=== PATIENT | male | born 1940 | race Caucasian/White ===

== ENCOUNTER 2019-04-19 17:36 | Inpatient (IN) | payer OTHER ==
[~2019-04-19] VITALS: Ht 172.7 cm; Wt 116.6 kg
[2019-04-19] MEDS ORDERED: HYDROcodone-ACET 5/325MG TAB PO ONE (18:45)
[2019-04-19] MEDS ORDERED: ONDANSETRON ODT 4 MG TAB PO ONE (18:45)
[2019-04-19 21:53] LABS: Basophils # (auto) 0 uL; Basophils % (auto) 0.5 % (0.0-2.0); Eosinophils # (auto) 0 uL; Eosinophils % (auto) 0.5 % (0.0-7.0); Hematocrit 42.4 % (41.0-53.0); Hemoglobin 14.1 g/dL (13.5-17.5); Lymphocytes # (auto) 1.3 uL; Lymphocytes % (auto) 12.6 % (10.0-50.0); Mean Corpuscular Hemoglobin 30.7 pg (28.0-32.0); Mean Corpuscular Hgb Conc. 33.3 g/dL (32.0-36.0); Mean Corpuscular Volume 91.9 fL (80.0-100.0); Monocytes # (auto) 0.7 uL; Monocytes % (auto) 6.7 % (0.0-12.0); Neutrophils # (auto) 8.1 uL; Neutrophils % (auto) 79.7 % (37.0-80.0); Platelet Count (auto) 218 10^3/uL (140-450); Red Blood Cells 4.61 10^6/uL (4.5-5.90); Red Cell Distribution Width 14.1 % (11.8-14.3); White Blood Cell 10.2 10^3/uL (4.4-10.8)
[2019-04-19] MEDS: FAMOTIDINE 20 MG TAB PO SCH (22:00)
[2019-04-19] MEDS: PRAVASTATIN SODIUM 20 MG TAB PO SCH (22:00)
[2019-04-19] MEDS ORDERED: ACETAMINOPHEN 325 MG TAB PO PRN (22:00)
[2019-04-19 22:11] LABS: Albumin 3.6 g/dL (3.4-5.0); Calcium 8.8 mg/dL (8.5-10.1); Potassium 4.1 mmol/L (3.5-5.1)
[2019-04-19 22:15] LABS: BUN/Creatinine Ratio 23.5; Bilirubin, Total 0.6 mg/dL (0.2-1.0); Total Protein 7.5 g/dL (6.4-8.2)
--- NOTE | 2019-04-19 23:30 | NUR ---
MS admit from ER [place] admitted to tele/MS. Patient oriented to QUIANA HELTON, RN primary RN, unit Med/Surg, room 204 and unit policies regarding patient care and visiting hours. Patient weighed by bedscale and encouraged to call if they need something. All questions and concerns addressed, patient verbalized understanding. Patient awake, alert and oriented x 4, at beside, bed is in low position, call light and bedside table is within reach, side rails up x 2. Patient instructed to call nursing staff for assistance.
[2019-04-19 23:45] VITALS: BP 144/80
[2019-04-19] MEDS: HYDROcodone-ACET 5/325MG TAB PO PRN (23:59)
[2019-04-20] MEDS: TEMAZEPAM 15 MG CAP PO PRN ×2 (00:36→21:02)
[2019-04-20] MEDS ORDERED: CHOL20007 OR (00:42)
[2019-04-20] MEDS ORDERED: METO-169 PO (00:42)
[2019-04-20] MEDS ORDERED: ASPI81CH43 PO (00:42)
[2019-04-20] MEDS ORDERED: ACET1CAP14 PO (00:42)
[2019-04-20] MEDS ORDERED: ETOD400T3 PO (00:42)
[2019-04-20] MEDS ORDERED: MULT-931 PO (00:42)
[2019-04-20] MEDS ORDERED: PRAV20TA3 PO (00:42)
[2019-04-20] MEDS ORDERED: MAGN400C3 PO (00:42)
[2019-04-20] MEDS ORDERED: OMEP20TA PO (00:42)
[2019-04-20] MEDS ORDERED: AMLO5TAB15 PO (00:42)
[2019-04-20] MEDS ORDERED: DOXYPOW PO (00:42)
[2019-04-20] MEDS ORDERED: ALFU10TA12 PO (00:42)
[2019-04-20 04:40] VITALS: BP 139/72
--- NOTE | 2019-04-20 07:30 | NUR ---
SHIFT CLOSING NOTE. ENDORSED CARE OF PATIENT TO DAY SHIFT, ABHIJEET DURÁN.
--- NOTE | 2019-04-20 07:48 | NUR ---
PATIENT ROUNDS PATIENT LYING IN BED, NO DISTRESS NOTED. BED IN LOWEST POSITION, SIDE RAILS UP X2, CALL LIGHT WITHIN REACH. WILL CONTINUE TO MONITOR.
[2019-04-20] MEDS: HYDROcodone-ACET 5/325MG TAB PO PRN ×3 (07:56→21:03)
[2019-04-20 09:00] VITALS: BP 145/73
[2019-04-20 09:55] LABS: Urine Bacteria NONE SEEN /hpf (None Seen); Urine Blood Negative /uL (Negative); Urine Hyaline Cast FEW /lpf (0 - 2); Urine Mucus FEW (None Seen); Urine Specific Gravity 1.025 (1.001-1.035); Urine WBC 4 /hpf (0 - 3)
[2019-04-20] MEDS ORDERED: ENOXAPARIN SOD 40 MG/0.4 ML SYRINGE SC SCH (10:00)
[2019-04-20] MEDS: amLODIPine BESYLATE 5 MG TAB PO SCH (10:20)
[2019-04-20] MEDS: FAMOTIDINE 20 MG TAB PO SCH ×2 (10:20→21:03)
[2019-04-20 12:41] VITALS: BP 137/66
[2019-04-20] MEDS: MORPHINE SULFATE 4 MG/ML SYR/VIAL IV PRN ×2 (12:49→21:59)
[2019-04-20 14:16] LABS: INR 0.99 (0.9-1.15)
--- NOTE | 2019-04-20 14:55 | NUR ---
MD UPDATE PER DR DOMINGUEZ-DR HUYNH IS TO DO SURGERY 04/21/19, NEW ORDER FOR CARDIO CONSULT FOR CARDIAC CLEARANCE, ECHO, LAB WORK, CXR, NPO AT MIDNIGHT TONIGHT
--- NOTE | 2019-04-20 15:08 | NUR ---
DR NUNN AT BEDSIDE FOR CARDIO CONSULT MOBILE SECURITY SPECIALIST HAS BEEN PAGED TWICE FOR ECHO ORDER-DR NUNN STATED HE WANTS THE TECH TO CALL HIM AFTER ECHO IS COMPLETE.
[2019-04-20 16:20] VITALS: BP 137/83
--- NOTE | 2019-04-20 16:50 | NUR ---
PATIENT OFF UNIT FOR CT SCAN
--- NOTE | 2019-04-20 17:18 | NUR ---
PER DIEM PHYSICAL THERAPIST ASSISTANT AT BEDSIDE-HE IS AWARE TO CALL DR NUNN ONCE ECHO IS COMPLETE.
[2019-04-20] MEDS ORDERED: OPTISON 3ml Vial for INJ IV ONE (17:32)
--- NOTE | 2019-04-20 17:55 | NUR ---
ECHO COMPLETE, OPTISON COMPLETE, NO REACTION NOTED, PATIENT TOLERATED WELL.
--- NOTE | 2019-04-20 18:13 | NUR ---
ORTHO DR HUYNH AT BEDSIDE, PATIENT AND AT BEDSIDE AND UPDATED ON POC BY MD. PLAN FOR SURGERY TUESDAY SCHEDULED AT 08:00AM. IF CARDIO CLEARANCE IS DONE BY DR NUNN IN AM THEN DR HUYNH WILL ATTEMPT TO HAVE SURGERY DONE TOMORROW.
--- NOTE | 2019-04-20 19:00 | NUR ---
OPENING NOTE Received report from day shift RN. Patient is A&O X's 4 with no s/s of distress noted. Patient c/o 9/10 left leg pain. Educated patient on pain medication and pain management. Will give pain medication as ordered. Patient has a splint with rich bandage around it to left leg and foot. Both lower extremities demonstrate adequate perfusion and circulation. Patient reports no numbness or tingling. Educated patient on POC and to use call light when in need of assistance. Patient verbalized understanding. Bed is in lowest/locked position with side rails up X's 2 and call light is within reach of patient. Will continue care.
[2019-04-20] MEDS: PRAVASTATIN SODIUM 20 MG TAB PO SCH (21:02)
--- NOTE | 2019-04-20 21:13 | NUR ---
RT NOTE PT REQUESTED NOT TO WEAR THE CPAP FOR THE REST OF THEW NIGHT HE DID NOT FEEL COMFORTABLE WITH THE CPAP. MACHINE LEFT AT BEDSIDE IF PT CHANGES MIND.
[2019-04-20 21:30] VITALS: BP 145/82
[2019-04-21 02:58] VITALS: BP 145/82
[2019-04-21 04:59] LABS: Basophils # (auto) 0.1 uL; Basophils % (auto) 0.9 % (0.0-2.0); Eosinophils # (auto) 0.3 uL; Eosinophils % (auto) 3.9 % (0.0-7.0); Hematocrit 43.1 % (41.0-53.0); Hemoglobin 14.2 g/dL (13.5-17.5); Lymphocytes # (auto) 1.6 uL; Lymphocytes % (auto) 22.1 % (10.0-50.0); Mean Corpuscular Hemoglobin 30.3 pg (28.0-32.0); Mean Corpuscular Volume 91.6 fL (80.0-100.0); Monocytes # (auto) 0.8 uL; Monocytes % (auto) 11.3 % (0.0-12.0); Neutrophils # (auto) 4.4 uL; Neutrophils % (auto) 61.8 % (37.0-80.0); Nucleated Red Blood Cells % 0.1 %; Platelet Count (auto) 194 10^3/uL (140-450); Red Cell Distribution Width 14.2 % (11.8-14.3); White Blood Cell 7.1 10^3/uL (4.4-10.8)
[2019-04-21 05:00] VITALS: BP 153/97
[2019-04-21 05:14] LABS: INR 1.01 (0.9-1.15)
[2019-04-21 05:17] LABS: BUN/Creatinine Ratio 12.5; Calcium 8.6 mg/dL (8.5-10.1); Potassium 3.6 mmol/L (3.5-5.1)
[2019-04-21] MEDS: MORPHINE SULFATE 4 MG/ML SYR/VIAL IV PRN ×4 (06:03→22:43)
--- NOTE | 2019-04-21 07:30 | NUR ---
Opening Shift Note Assumed care of patient, awake, alert, and oriented x4. No S/S of distress/SOB, but patient is reporting left leg pain of 6/10. IV is in left hand 20 gauge is asymptomatic, intact, patent, and saline locked. Bed is locked and in lowest position and call light is within reach. Instructed on POC and to call for assist PRN, and patient verbalized understanding. Will continue to monitor for changes Q1hr and PRN.
--- NOTE | 2019-04-21 08:50 | NUR ---
Dr. Stanley MD, at bedside. New orders received.
[2019-04-21 09:00] VITALS: BP 151/97
--- NOTE | 2019-04-21 09:21 | NUR ---
Ordered breakfast tray for patient; reg diet put in, pt will be NPO tonight at midnight for procedure tomorrow.
--- NOTE | 2019-04-21 09:23 | NUR ---
Surgery Tuesday at 08:00 Dr. Stanley MD, instructed surgery will be tomorrow, Tuesday, at 0800.
[2019-04-21] MEDS: HYDROcodone-ACET 5/325MG TAB PO PRN (09:28)
--- NOTE | 2019-04-21 09:30 | NUR ---
Patient requesting Prune juice; left message with dietary to please send up to room 204.
--- NOTE | 2019-04-21 10:00 | NUR ---
Dr. Gil, Orthopedic Surgeon, at bedside.
[2019-04-21] MEDS: FAMOTIDINE 20 MG TAB PO SCH ×2 (10:19→22:41)
[2019-04-21] MEDS: amLODIPine BESYLATE 5 MG TAB PO SCH (10:20)
--- NOTE | 2019-04-21 11:30 | NUR ---
IV removal IV DC'd with clean sterile technique, catheter fully intact. Pressure dressing applied to site. Patient tolerated well.
--- NOTE | 2019-04-21 11:35 | NUR ---
IV insertion IV access obtained, via clean sterile technique by inserting 20 gauge catheter at right wrist after 1 attempt. IV secured properly. No trauma to site. Patient tolerated well.
[2019-04-21 13:00] VITALS: BP 152/81
--- NOTE | 2019-04-21 16:10 | NUR ---
Received report on patient. Patient is alert and oriented. No complaints at this time. at bedside. Call light in reach. Will continue to monitor.
[2019-04-21 18:03] VITALS: BP 149/74
--- NOTE | 2019-04-21 19:30 | NUR ---
Opening Shift Note Assumed care of patient, awake and alert. No S/S of distress/SOB and "was just medicated for pain," pt states. This RN instructed pt on POC and to call for assist PRN. Pt voiced understanding and has nurse call light by L side of his face. This RN will continue to monitor for changes Q1hr and PRN. Bed in low position and locked.
--- NOTE | 2019-04-21 19:57 | NUR ---
Respiratory note: PT RECIEVED ON RA IN NO DISTRESS AT THIS TIME. PT ALERT AND ORIENTATED. SPOKE WITH PT ABOUT GOING ON CPAP TONIGHT AND STATES HE IS NOT GOING TO GO ON TONIGHT. RN AT BEDSIDE TO VERIFY PT'S REQUESTS. SPO2 ON RA 94%, HR 64, RR 18. BS CLR/DIM. WILL CONTINUE TO MONITOR PT T/O SHIFT. Addendum: 04/21/19 at 2033 by RT SHIVA RT BRAYDEN FRAGOSO TO VERIFY REFUSAL OF CPAP.
--- NOTE | 2019-04-21 20:34 | NUR ---
Pt telling RT that the CPAP machines here at the hospital are too noisy and heavy on his face. He further stated that he "did not use CPAP last night and I am okay."
[2019-04-21 22:00] VITALS: BP 145/97
[2019-04-21] MEDS: PRAVASTATIN SODIUM 20 MG TAB PO SCH (22:41)
[2019-04-21] MEDS: TEMAZEPAM 15 MG CAP PO PRN (22:43)
[2019-04-22 05:09] VITALS: BP 136/70
[2019-04-22] MEDS: MORPHINE SULFATE 4 MG/ML SYR/VIAL IV PRN ×4 (06:05→22:23)
--- NOTE | 2019-04-22 06:30 | NUR ---
Pt has had saline lock in R hand. This RN started PIV on first attempt with 20g cath L dorsal lateral hand. Pt sybil. well. Saline locked. Secured with tape; dated and initialed.
--- NOTE | 2019-04-22 06:34 | NUR ---
HCG bed bath given to pt before PIV started. Pt sybil well; Morphine 2mg IVP given after activity for pain.
--- NOTE | 2019-04-22 08:00 | NUR ---
Opening Shift Note Assumed care of patient, resting with eyes closed, wakes easily to sound/touch. No S/S of distress/SOB or pain. Instructed on POC and to call for assist PRN, will continue to monitor for changes Q1hr and PRN.
--- NOTE | 2019-04-22 08:21 | NUR ---
0745 HEART RATE WAS IN THE 40'S AT 5 AM VITAL SIGNS, PATIENT CURRENTLY ASYMPTOMATIC. DR DOMINGUEZ CALLED, THIS PHYSICIAN ALLERGIST IMMUNOLOGIST CHECKED HEART RATE WHILE ON PHONE WITH MD, HEART RATE READS 38-[address] DOMINGUEZ TRANSFER PATIENT STATUS, PER DR DOMINGUEZ SURGERY IS CANCELLED. PATIENT AND UPDATED, MONITOR APPLIED, PATIENT CURRENT RHYTHM IS SINUS IN THE 80'S. REPORT GIVEN TO LEEANNA.
[2019-04-22 09:00] VITALS: BP 152/97
[2019-04-22] MEDS: FAMOTIDINE 20 MG TAB PO SCH ×2 (09:08→22:21)
[2019-04-22] MEDS: amLODIPine BESYLATE 5 MG TAB PO SCH (09:09)
[2019-04-22] MEDS ORDERED: BISACODYL 10 MG RECT SUPP PR PRN (09:30)
[2019-04-22] MEDS: POLYETHYLENE GLYCOL 17 GM PWDR PO PRN (10:49)
[2019-04-22 13:00] VITALS: BP 144/97
[2019-04-22] MEDS: DOCUSATE SOD 100 MG CAP PO PRN (15:48)
[2019-04-22 18:20] VITALS: BP 149/93
--- NOTE | 2019-04-22 19:26 | NUR ---
Opening Shift Note Assumed care of patient, awake and alert x 4. No S/S of distress/SOB. Bed is in lowest position and locked. Call light within reach. Board updated. Tele box number matches monitor and leads are in correct placement. Patient's left leg is secured with a splint wrapped in an ARTURO wrap. Distal pulses intact, skin warm, cap refill <3 seconds, sensation intact. Instructed on POC and to call for assist PRN, will continue to monitor for changes Q1hr and PRN.
[2019-04-22] MEDS: PRAVASTATIN SODIUM 20 MG TAB PO SCH (22:21)
[2019-04-22 22:26] VITALS: BP 146/86
[2019-04-22] MEDS: TEMAZEPAM 15 MG CAP PO PRN (22:29)
--- NOTE | 2019-04-23 00:02 | NUR ---
Patient is now NPO pending ORIF today. Patient aware that he may not eat or drink anything pending surgery. All foods and luids removed from reach.
[2019-04-23 05:18] VITALS: BP 137/66
[2019-04-23] MEDS: MORPHINE SULFATE 4 MG/ML SYR/VIAL IV PRN (05:40)
[2019-04-23 05:47] LABS: Basophils # (auto) 0 uL; Basophils % (auto) 0.5 % (0.0-2.0); Eosinophils # (auto) 0.2 uL; Eosinophils % (auto) 2.5 % (0.0-7.0); Hematocrit 45.5 % (41.0-53.0); Hemoglobin 15.3 g/dL (13.5-17.5); Lymphocytes # (auto) 1.9 uL; Lymphocytes % (auto) 20.3 % (10.0-50.0); Mean Corpuscular Hgb Conc. 33.6 g/dL (32.0-36.0); Mean Corpuscular Volume 92.1 fL (80.0-100.0); Monocytes # (auto) 1.2 uL; Monocytes % (auto) 12.9 % (0.0-12.0); Neutrophils # (auto) 5.9 uL; Neutrophils % (auto) 63.8 % (37.0-80.0); Platelet Count (auto) 228 10^3/uL (140-450); Red Blood Cells 4.94 10^6/uL (4.5-5.90); Red Cell Distribution Width 14.3 % (11.8-14.3); White Blood Cell 9.2 10^3/uL (4.4-10.8)
[2019-04-23 05:55] LABS: BUN/Creatinine Ratio 14.6
--- NOTE | 2019-04-23 06:08 | NUR ---
CHG bath performed. Patient's bed linen changed. Patient placed in new gown.
--- NOTE | 2019-04-23 07:30 | NUR ---
Assumed care of patient Patient resting in bed with even and unlabored respirations, no distress noted. Instructed patient on POC, fall precautions and to call for assistance as needed. Patient verbalized understanding. Fall precautions in place with bed in lowest locked position with call light within reach. Soft cast in place to the LLE. Patient's spouse at bedside. Will continue to monitor q1hr & PRN.
[2019-04-23] MEDS ORDERED: BUPIVACAINE 0.25% INJ 50ML VIAL ONE (07:41)
--- NOTE | 2019-04-23 07:46 | NUR ---
Called Dr. Moffett's office per the request of the anesthesiologist to clarify cardiac clearance for surgery. Spoke with MD's paging system.
--- NOTE | 2019-04-23 07:53 | NUR ---
Spoke with Dr. Moffett - patient is clear for surgery per MD.
--- NOTE | 2019-04-23 08:09 | NUR ---
Patient off unit to Pre-op via hospital bed. Respirations even and unlabored, no distress noted. Patient's spouse is at bedside.
[2019-04-23] MEDS ORDERED: ceFAZolin 1GM/50ML 50 ML IV ONE ×2 (08:26→09:09)
[2019-04-23] MEDS ORDERED: fentaNYL CITRATE 100 MCG/2 ML VL ONE ×2 (08:41→09:50)
[2019-04-23] MEDS ORDERED: ROCURONIUM 10MG/ML 10ML VIAL IV ONE (08:41)
[2019-04-23] MEDS ORDERED: PROPOFOL 10 MG/ML 20 ML IV ONE (08:42)
[2019-04-23] MEDS ORDERED: MORPHINE SULF(PF) 0.5MG/ML 10ML VIAL ONE (10:00)
[2019-04-23] MEDS: FAMOTIDINE 20 MG TAB PO SCH ×2 (10:00→22:28)
[2019-04-23] MEDS ORDERED: KETOROLAC TROMETH 30 MG/ML 1ML VIAL ONE (10:00)
[2019-04-23] MEDS ORDERED: ONDANSETRON HCL 4 MG/2 ML VIAL IV PRN (10:45)
[2019-04-23] MEDS ORDERED: hydrALAZINE HCL 20 MG/ML VL IV PRN (10:45)
[2019-04-23] MEDS ORDERED: ePHEDrine SULFATE 50 MG/ML AMP IV PRN (10:45)
[2019-04-23] MEDS ORDERED: HYDROmorphone HCL 2 MG/ML VL IV PRN ×2 (10:45)
[2019-04-23] MEDS: KETOROLAC TROMETH 30 MG/ML 1ML VIAL IV ONE ×2 (10:49→12:32)
[2019-04-23] MEDS ORDERED: HYDROmorphone HCL 2 MG/ML VL ONE (10:50)
[2019-04-23] MEDS: HYDROmorphone HCL 2 MG/ML VL IV PRN ×4 (10:52→11:29)
[2019-04-23] MEDS ORDERED: FAMOTIDINE 20 MG TAB PO ONE (11:15)
[2019-04-23] MEDS ORDERED: ENOXAPARIN SOD 40 MG/0.4 ML SYRINGE SC ONE (11:15)
--- NOTE | 2019-04-23 11:23 | NUR ---
Nutrition Assessment Notes Please see attached link for complete assessment Est. Needs ABW (91 kg): 7367-2128 kcal (20-23 kcal/kgBW), 91-100 gms pro (1.0-1.1 gms/kgABW). Will continue to monitor pertinent labs and reassess nutrient need prn Addendum: 04/23/19 at [address] Amended: Links added.
--- NOTE | 2019-04-23 11:50 | NUR ---
Patient returned to unit via hospital bed. Respirations even and unlabored, no distress noted. Patient is drowsy although arousable. Patient placed on supplemental oxygen. Patient reoriented to surroundings and situation. Fall precautions in place with bed in lowest locked position, x2 side rails up, bed alarm on for safety, call light within reach. Patient's spouse at bedside. LLE in a brace. Pedal pulse present. Will continue to monitor q1hr & PRN.
--- NOTE | 2019-04-23 12:15 | NUR ---
SCD placed per MD order
[2019-04-23] MEDS: KETOROLAC TROMETH 30 MG/ML 1ML VIAL ONE ×2 (12:32→13:07)
[2019-04-23 13:00] VITALS: BP 140/56
[2019-04-23] MEDS: amLODIPine BESYLATE 5 MG TAB PO SCH (13:06)
[2019-04-23] MEDS: LACTATED RINGER'S 1,000 ML IV SCH (13:09)
[2019-04-23] MEDS: ceFAZolin 1GM 2 GM in D5W 5% 100 ML IV SCH ×2 (14:02→22:27)
--- NOTE | 2019-04-23 14:25 | NUR ---
Patient resting in bed with even and unlabored respirations, no distress noted. Patient denies pain. Dressing to the LLE is clean, dry and intact. Pedal pulse present. Instructed patient to notify staff if assistance is needed. Patient verbalized understanding. Fall precautions in place with bed in lowest locked position with call light within reach. Patient's spouse at bedside. Will continue to monitor q1hr & PRN.
--- NOTE | 2019-04-23 14:51 | NUR ---
Copy of Durable Power of Banquet Steward for health care placed in hard chart. Original copy returned to the patient's spouse.
--- NOTE | 2019-04-23 15:00 | NUR ---
assessment Patient is a 79 year old male who is alert and oriented. Patients cognitive abilities are intact. Prior to admission patient lived home with family and functioned independently. Patient informed me he is able to care for his own ADLs. Patient tripped over a stool at home and fell fracturing his tibia. Patient will be non weight bearing per his Princess who is at bedside. Patients PCP is Dr Jay Jay Mace. Patient may benefit from SNF placement for transfer training on discharge. Patient and Princess agree to SNF. Per Princess she prefers [facility]. Patient has a fww and a cane for home use. Per patient he will return home to his prior living arrangements post discharge and family will transport him home. I informed patient he has a right to speak to a director social regarding all care. I informed patient he has a right to participate in any and all discharge planning. Patient has a POA and advanced directive. Patient verbalized understanding and agreed to discharge plan. Addendum: 04/23/19 at 1505 by Tuyet OSORIO Amended: Links added.
[2019-04-23 17:00] VITALS: BP 134/74
--- NOTE | 2019-04-23 18:23 | NUR ---
Paged on-call hospitalist Patient has c/o heartburn causing vomiting. Page to Daljit Jaramillo N.P.
[2019-04-23] MEDS: ONDANSETRON HCL 4 MG/2 ML VIAL IV PRN ×2 (18:24→23:48)
[2019-04-23] MEDS: DOCUSATE SOD 100 MG CAP PO PRN (18:30)
[2019-04-23] MEDS: POLYETHYLENE GLYCOL 17 GM PWDR PO PRN (18:30)
--- NOTE | 2019-04-23 18:34 | NUR ---
Orders received Updated Daljit Gonzalez., N.P., of patient's c/o heartburn with nausea. Daljit verbalized understanding. Orders received and read back to verify.
--- NOTE | 2019-04-23 18:55 | NUR ---
Closing note patient resting in bed with even and unlabored respirations, no distress noted. Fall precautions in place with call light within reach, bed alarm on for safety. Dressing to the LLE is clean, dry and intact. Removable brace in place per MD order. Pedal pulse present. Patient's spouse at bedside.
--- NOTE | 2019-04-23 19:23 | NUR ---
Care endorsed to ABHIJEET Gutierrez.
--- NOTE | 2019-04-23 19:24 | NUR ---
RE: Ordered Carafate One time dose of Carafate ordered by MD has not been verified. Endorsed to ABHIJEET Gutierrez.
[2019-04-23] MEDS ORDERED: SUCRALFATE 1 GM TAB PO ONE (19:30)
--- NOTE | 2019-04-23 19:30 | NUR ---
Opening Shift Note Assumed care of patient, awake and alert. No S/S of SOB or pain. present with pt. Pt c/o severe indigestion. Miralax previously mixed in water cont at pt's bedside untouched. Pt's c/o pt's resistance to drink it though he needs to have bm. Pt requesting med for indigestion. Assured med order received and we are awaiting release by pharm to be able to admin. Instructed on POC and to call for assist PRN; RN will continue to monitor for changes Q1hr and PRN. Bed locked in low position. HOB rails x2 elevated. Call light within reach of pt. HOB in Cheng's position.
[2019-04-23 22:00] VITALS: BP 152/94
[2019-04-23] MEDS: PRAVASTATIN SODIUM 20 MG TAB PO SCH (22:29)
--- NOTE | 2019-04-23 22:53 | NUR ---
Respiratory note: PT TAKEN OFF BIPAP DUE TO NAUSEA AND VOMITING. PLACED BACK ON 2 L/M NC: HR 99, RR 24, SPO2 95%. RN LIANE WEST. WILL CONTINUE TO MONITOR.
--- NOTE | 2019-04-23 23:55 | NUR ---
Paging on-call as pt's indigestion cont and now emesis of opaque bile green fluid. Zofran given for nausea as ordered.
--- NOTE | 2019-04-24 00:03 | NUR ---
Kimberlyn Snyder RN HYDRAULIC PUNCH PRESS OPERATOR, on-call, returned page. Pt has had 120ml bile drainage produced. Order received for Fleets enema x1. This RN returned to pt's room; pt c/o difficulty breathing. Resp rate increased to 24. R lung clear; L diminished in lower lobe. Pt denies having "choked or strangled after emesis. Paged on-call again.
--- NOTE | 2019-04-24 00:08 | NUR ---
RT here at bedside. Kimberlyn Snyder RN CAGE FIGHTER, on-call, again returned page; order received for albuterol txs.
[2019-04-24] MEDS: ALBUTEROL SULF 2.5 MG/0.5ML(0.5%) NEB SOLN NEB SCH ×4 (01:25→18:22)
--- NOTE | 2019-04-24 01:30 | NUR ---
Respiratory note: PT DID NOT TOLERATE MED NEB TX WELL. AFTER 5 MINUTES PT BEGAN TO FEEL NAUSEOUS AND ASKED FOR IT TO BE REMOVED. INFORMED RN LIANE. WILL CONTINUE TO MONITOR.
--- NOTE | 2019-04-24 01:32 | NUR ---
Paging on-call again, as this RN returned to pt's room to speak with him and pt had emesis across his face and into his hair, across his pillow and the linens. Brown, coffee ground appearance and smell to emesis.
--- NOTE | 2019-04-24 01:35 | NUR ---
Received call back from Kimberlyn Snyder RN CATERPILLAR TRACTOR OPERATOR; order received for stat H&H and GI consult.
[2019-04-24] MEDS: LACTATED RINGER'S 1,000 ML IV SCH ×2 (01:59→16:37)
[2019-04-24 02:14] LABS: Hematocrit 43.6 % (41.0-53.0); Hemoglobin 14.5 g/dL (13.5-17.5)
[2019-04-24] MEDS ORDERED: FLEET ENEMA(ADULT) 135 ML PR ONE (02:15)
--- NOTE | 2019-04-24 02:57 | NUR ---
Fleets enema given; pt turned to R side supported by FASHION DIRECTOR while RN gave enema. Only partial retained by pt; resting with pillow support to allow med to work. Large amount flatus being passed. Instructed to call for assist when done; Pt VU.
--- NOTE | 2019-04-24 03:11 | NUR ---
Pt urinated on chux as well as passing moderate amount of soft brown zana like stool. Chux changed and pt cleaned. Resuming rest.
[2019-04-24 03:15] VITALS: BP 152/94
[2019-04-24 05:00] VITALS: BP 147/79
[2019-04-24] MEDS: ceFAZolin 1GM 2 GM in D5W 5% 100 ML IV SCH (05:58)
[2019-04-24] MEDS: SUCRALFATE 1 GM TAB PO SCH ×4 (05:59→22:20)
[2019-04-24] MEDS: DOCUSATE SOD 100 MG CAP PO PRN (06:00)
[2019-04-24] MEDS ORDERED: METOCLOPRAMIDE HCL 5MG/ml INJ 2ml VIAL IV PRN (08:00)
--- NOTE | 2019-04-24 08:35 | NUR ---
D/C planning Per consult for SNF placement for transfer training. Contacted [facility] ph: ( [phone]) Fax:) faxed medical records. Per Alfredo from [facility] Pt has been acce[lisseth to room [address] Myers. Contacted [facility] Ph:) Fax:) faxed medical records. Pending on authorization. transportation will be arrange upon d/c day. Addendum: 04/24/19 at 0841 by LUCY STANTON Amended: Links added.
[2019-04-24 08:43] VITALS: BP 138/60
[2019-04-24] MEDS: ENOXAPARIN SOD 40 MG/0.4 ML SYRINGE SC SCH (08:52)
[2019-04-24] MEDS: FAMOTIDINE 20 MG TAB PO SCH (08:52)
[2019-04-24] MEDS: amLODIPine BESYLATE 5 MG TAB PO SCH (08:53)
--- NOTE | 2019-04-24 09:08 | NUR ---
D/C Planning Followed up call to [facility] spoke to Ladan. Per Ladan from [facility] authorization for SNF has been faxed to [facility]. Ladan from [facility] advised me Pt does not have transportation benefits. Advised Pt Princess at bedside, Pt has no transportation benefits and if she agrees to take Pt to facility or pay for transportation. Pt Princess was given rates for transportation and the transportation with the lowest rate was general transport. Pt Princess verbalize understanding.
[2019-04-24] MEDS ORDERED: ALUM & MAG HYDROX-SIMETH LIQ(MAALOX) 30 ML PO PRN (09:15)
[2019-04-24] MEDS ORDERED: OMEPRAZOLE 20MG/10ML ORAL SUSP PO SCH (10:00)
[2019-04-24] MEDS: HYDROcodone-ACET 10/325MG TAB PO PRN ×2 (10:01→22:20)
[2019-04-24 12:48] VITALS: BP 133/69
[2019-04-24] MEDS: PANTOPRAZOLE 40 MG TAB PO SCH (13:18)
[2019-04-24 16:17] VITALS: BP 131/89
--- NOTE | 2019-04-24 19:10 | NUR ---
OPENING SHIFT NOTE Assumed care of patient who is A&Ox4. Currently on 2L NC with no c/o SOB. Reports 01/24 throbbing pain in LLE. Pain management options discussed with patient. Patient is non-weight bearing on left leg as he is s/p ORIF on04/23/19. dressing and soft cast are in place; LLE elevated on pillows and SCD on RLE. POC discussed with patient and all questions answered. Bed is in low locked position with head elevated. jevon rails up x2. Call light is within reach and patient encouraged to call for assistance when needed. Will continue to monitor for changes PRN.
[2019-04-24 20:52] VITALS: BP 148/88
[2019-04-24] MEDS: TEMAZEPAM 15 MG CAP PO PRN (22:20)
[2019-04-24] MEDS: PRAVASTATIN SODIUM 20 MG TAB PO SCH (22:20)
--- NOTE | 2019-04-24 22:30 | NUR ---
Respiratory note:PT REFUSE CPAP AT THIS TIME, PT ALSO STATES HE WANTS TO WAIT UNTIL 0600 TO TAKE HIS NEXT MED NEB. PT SAT 94% ON 2LNC. NO DISTRESS NOTED.
--- NOTE | 2019-04-25 00:55 | NUR ---
IV dislodged. Catheter is fully intact. Pressure dressing applied. Patient tolerated well.
--- NOTE | 2019-04-25 01:50 | NUR ---
IV insertion IV access obtained, via clean sterile technique by inserting 22 gauge catheter at left forearm after 2 attempts. IV secured properly. No trauma to site. Patient tolerated well.
[2019-04-25] MEDS: LACTATED RINGER'S 1,000 ML IV SCH ×2 (02:23→12:37)
[2019-04-25 04:58] VITALS: BP 175/86
--- NOTE | 2019-04-25 05:00 | NUR ---
FLOOR WAXER reports BP of 175/86 with heart rate of 78. reassessed by this RN and BP is 151/71, heart rate 90.
[2019-04-25 05:11] LABS: Basophils # (auto) 0 uL; Basophils % (auto) 0.2 % (0.0-2.0); Eosinophils # (auto) 0.1 uL; Eosinophils % (auto) 0.7 % (0.0-7.0); Hematocrit 38.8 % (41.0-53.0); Hemoglobin 12.8 g/dL (13.5-17.5); Lymphocytes # (auto) 1.8 uL; Lymphocytes % (auto) 16.5 % (10.0-50.0); Mean Corpuscular Volume 93.9 fL (80.0-100.0); Monocytes # (auto) 1.4 uL; Monocytes % (auto) 12.6 % (0.0-12.0); Neutrophils # (auto) 7.6 uL; Platelet Count (auto) 193 10^3/uL (140-450); Red Blood Cells 4.14 10^6/uL (4.5-5.90); Red Cell Distribution Width 14.2 % (11.8-14.3); White Blood Cell 10.8 10^3/uL (4.4-10.8)
[2019-04-25 05:27] LABS: BUN/Creatinine Ratio 24.3; Calcium 8.5 mg/dL (8.5-10.1); Magnesium 2.5 mg/dL (1.6-2.6); Potassium 3.7 mmol/L (3.5-5.1)
[2019-04-25] MEDS: ALBUTEROL SULF 2.5 MG/0.5ML(0.5%) NEB SOLN NEB SCH ×3 (06:26→11:54)
[2019-04-25] MEDS: SUCRALFATE 1 GM TAB PO SCH (06:35)
--- NOTE | 2019-04-25 07:45 | NUR ---
Opening Patient in bed, asleep, bed in lowest position, call light within reach. No distress noted at this time. Today patient is to f/u with EGD procedure with DR Hollingsworth, will call to check about what time. Will f/u with morning assessment. Continuing to monitor this patient
[2019-04-25 08:00] VITALS: BP 175/75
--- NOTE | 2019-04-25 08:12 | NUR ---
nurse note laser technician reports an elevated bp, will administer medications as ordered. bp is currently 175/74 will reassess. Turned off IV fluid hydration, and sat patient up right. Will continue to monitor this patient.
[2019-04-25] MEDS: PANTOPRAZOLE 40 MG TAB PO SCH (09:12)
[2019-04-25] MEDS: amLODIPine BESYLATE 5 MG TAB PO SCH (09:13)
[2019-04-25] MEDS: ENOXAPARIN SOD 40 MG/0.4 ML SYRINGE SC SCH (09:13)
[2019-04-25 12:08] VITALS: BP 114/73
[2019-04-25] MEDS ORDERED: METOPROLOL TARTRATE 25 MG TAB PO ONE (12:30)
[2019-04-25] MEDS ORDERED: MIDAZOLAM HCL 5 MG/ML-1ML VIAL ONE (12:58)
[2019-04-25] MEDS ORDERED: LIDOCAINE VISCOUS 2% 15ML UD ONE (12:58)
[2019-04-25] MEDS ORDERED: fentaNYL CITRATE 100 MCG/2 ML VL ONE (12:58)
[2019-04-25] MEDS ORDERED: diphenhdrAMINE HCL 50 MG/1 ML VL ONE (12:59)
[2019-04-25] MEDS ORDERED: ceFAZolin 1GM 2 GM in D5W 5% 100 ML IV SCH (14:00)
--- NOTE | 2019-04-25 14:37 | NUR ---
D/C Planning Contacted [facility] Ph:( [phone]) spoke to Jose. Advised Jose from [facility] transport Pt will be paying for transportation and to arrange fruit or nut picker time between 16:00-17:00 via [employer]. Advised Pt Princess at bedside transportation will be [id number] and payment needs be paid upon arrival to [facility]. Pt Princess verbalize understanding. Advised ABHIJEET Mancia Addendum: 04/25/19 at 1451 by LUCY OSORIO Amended: Links added.
[2019-04-25 15:06] VITALS: BP 175/74
[2019-04-25 16:25] VITALS: BP 136/81
--- NOTE | 2019-04-25 17:14 | NUR ---
closing Discharge instructions given as ordered. Encourage to follow up with PMD as instructed. All questions and concerns addressed. Patient verbalized understanding. Medication reconciliation form completed and copy given to patient. IV removed with catheter intact, pressure dressing applied, garsia catheter removed. Telemetry unit returned to ICU. Patient taken to vehicle via wheelchair with all personal belongings, accompanied by staff and family member. No distress noted at time of departure.
[2019-04-25] MEDS ORDERED: PANTOPRAZOLE 40 MG TAB PO SCH (22:00)
[2019-04-25] MEDS ORDERED: METOPROLOL TARTRATE 25 MG TAB PO SCH (22:00)
== END 2019-04-25 16:42 | DRG 488 ==
LOC: ER 17:46 → OVERFLOW 17:47 → CENTRAL 23:19 → TELE-CENTR 04-22 08:30
PROVIDERS: ADMIT Nurse Practitioner; ATTEND Internal Medicine
PROC: 5A09357 Assistance with Respiratory Ventilation, Less than 24 Consecutive Hours, Continuous Positive Airway Pressure (ICD-10-PCS; 2019-04-20)
PROC: 0SQD0ZZ Repair Left Knee Joint, Open Approach (ICD-10-PCS; 2019-04-23)
PROC: 5A09357 Assistance with Respiratory Ventilation, Less than 24 Consecutive Hours, Continuous Positive Airway Pressure (ICD-10-PCS; 2019-04-23)
PROC: 0QSH04Z Reposition Left Tibia with Internal Fixation Device, Open Approach (ICD-10-PCS; principal; 2019-04-23 08:35)
PROC: 0DJ08ZZ Inspection of Upper Intestinal Tract, Via Natural or Artificial Opening Endoscopic (ICD-10-PCS; 2019-04-25)
DX: S82.142A Displaced bicondylar fracture of left tibia, initial encounter for closed fracture (principal); E66.2 Morbid (severe) obesity with alveolar hypoventilation; E78.5 Hyperlipidemia, unspecified; I10 Essential (primary) hypertension; R00.1 Bradycardia, unspecified; K21.9 Gastro-esophageal reflux disease without esophagitis; Z68.39 Body mass index [BMI] 39.0-39.9, adult; K29.70 Gastritis, unspecified, without bleeding; K21.0 Gastro-esophageal reflux disease with esophagitis; S83.242A Other tear of medial meniscus, current injury, left knee, initial encounter; Z96.653 Presence of artificial knee joint, bilateral; W07.XXXA Fall from chair, initial encounter; K44.9 Diaphragmatic hernia without obstruction or gangrene; G89.29 Other chronic pain; M54.9 Dorsalgia, unspecified; R11.2 Nausea with vomiting, unspecified; Y93.89 Activity, other specified; Y92.094 Garage of other non-institutional residence as the place of occurrence of the external cause; Y99.8 Other external cause status; T88.59XA Other complications of anesthesia, initial encounter; T41.205A Adverse effect of unspecified general anesthetics, initial encounter; Y83.8 Other surgical procedures as the cause of abnormal reaction of the patient, or of later complication, without mention of misadventure at the time of the procedure; Y79.8 Miscellaneous orthopedic devices associated with adverse incidents, not elsewhere classified
CPT/HCPCS: 36415; 43235; 71045; 73502; 73562; 73590; 73700; 76000; 80048; 80053; 81001; 83735; 85014; 85018; 85025; 85610; 85730; 86850; 86900; 86901; 93005; 93306; 94640; 94660; 96361; 96365; 96375; 97116; 97163; 97530; G0378; J0690; J1885; J2250; J2405; J2704; J3490; J7060; Q0162; Q9956

== ENCOUNTER 2021-01-11 15:09 | Inpatient (IN) | payer OTHER ==
[~2021-01-11] VITALS: Ht 177.8 cm; Wt 112.7 kg
[~2021-01-11 15:09] MED LIST: ACET1CAP14 PO; ALFU10TA33 PO; AMLO-489 PO; ASPI81CH43 PO; CHOL20007 OR; DOXYPOW PO; ETOD400T3 PO; MAGN400C3 PO; METO-289 PO; MULT-931 PO; OMEP20TA PO; PRAV20TA3 PO
[2021-01-11] MEDS ORDERED: HYDROmorphone HCL 2 MG/ML VL IV ONE (15:30)
[2021-01-11] MEDS ORDERED: ONDANSETRON HCL 4 MG/2 ML VIAL IV ONE (15:30)
[2021-01-11 16:51] LABS: Basophils # (auto) 0.1 10 ^3/uL (0-0.2); Basophils % (auto) 0.7 % (0.0-2.0); Eosinophils # (auto) 0 10 ^3/uL (0-0.8); Eosinophils % (auto) 0.4 % (0.0-7.0); Hematocrit 44.8 % (41.0-53.0); Hemoglobin 15.4 g/dL (13.5-17.5); Lymphocytes # (auto) 1.7 10 ^3/uL (0.4-5.4); Lymphocytes % (auto) 15.9 % (10.0-50.0); Mean Corpuscular Hemoglobin 30.2 pg (28.0-32.0); Mean Corpuscular Hgb Conc. 34.3 g/dL (32.0-36.0); Mean Corpuscular Volume 88.3 fL (80.0-100.0); Monocytes # (auto) 0.6 10 ^3/uL (0-1.3); Monocytes % (auto) 5.9 % (0.0-12.0); Neutrophils # (auto) 8.1 10 ^3/uL (1.6-8.6); Neutrophils % (auto) 77.1 % (37.0-80.0); Nucleated Red Blood Cells % 0.1 %; Platelet Count (auto) 268 10^3/uL (140-450); Red Blood Cells 5.08 10^6/uL (4.5-5.90); Red Cell Distribution Width 14.5 % (11.8-14.3); White Blood Cell 10.5 10^3/uL (4.4-10.8)
[2021-01-11 20:08] LABS: Anion Gap 9 (5-15); Blood Urea Nitrogen 12 mg/dL (7-18); Carbon Dioxide 25 mmol/L (21-32); Chloride 104 mmol/L (98-107); Glucose 121 mg/dL (74-106); Potassium 3.7 mmol/L (3.5-5.1); Sodium 138 mmol/L (136-145)
[2021-01-11 20:09] LABS: Alkaline Phosphatase 97 U/L (45-117); Aspartate Aminotransferase 25 U/L (15-37); BUN/Creatinine Ratio 18.2; GFR African American 149 mL/min; GFR Non-African American 123 mL/min
[2021-01-11 20:10] LABS: Alanine Aminotransferase 42 U/L (16-61); Albumin 3.3 g/dL (3.4-5.0); Bilirubin, Total 0.6 mg/dL (0.2-1.0); Calcium 8.7 mg/dL (8.5-10.1); Total Protein 7.3 g/dL (6.4-8.2)
[2021-01-11] MEDS ORDERED: ONDANSETRON HCL 4 MG/2 ML VIAL IV PRN (21:15)
[2021-01-11] MEDS ORDERED: ACETAMINOPHEN 325 MG TAB PO PRN (21:15)
[2021-01-11] MEDS ORDERED: TEMAZEPAM 15 MG CAP PO PRN (21:15)
[2021-01-11] MEDS: FAMOTIDINE 20 MG TAB PO SCH (21:51)
[2021-01-11] MEDS: PRAVASTATIN SODIUM 20 MG TAB PO SCH (21:51)
[2021-01-11 21:54] LABS: Urine Bacteria NONE SEEN /hpf (None Seen); Urine Blood Negative /uL (Negative); Urine Mucus FEW (None Seen); Urine Specific Gravity 1.024 (1.001-1.035); Urine WBC 1 /hpf (0 - 3)
[2021-01-11 22:30] VITALS: BP 160/95
[2021-01-12] MEDS: MORPHINE SULFATE 4 MG/ML SYR/VIAL IV PRN ×2 (04:40→14:01)
[2021-01-12 05:00] VITALS: BP 151/93
[2021-01-12 06:57] LABS: Basophils # (auto) 0 10 ^3/uL (0-0.2); Basophils % (auto) 0.3 % (0.0-2.0); Eosinophils # (auto) 0.1 10 ^3/uL (0-0.8); Eosinophils % (auto) 1.7 % (0.0-7.0); Hematocrit 43.8 % (41.0-53.0); Hemoglobin 15.2 g/dL (13.5-17.5); Lymphocytes # (auto) 1.8 10 ^3/uL (0.4-5.4); Lymphocytes % (auto) 23.7 % (10.0-50.0); Mean Corpuscular Hemoglobin 30.5 pg (28.0-32.0); Mean Corpuscular Hgb Conc. 34.6 g/dL (32.0-36.0); Monocytes # (auto) 0.7 10 ^3/uL (0-1.3); Monocytes % (auto) 9.4 % (0.0-12.0); Neutrophils # (auto) 4.9 10 ^3/uL (1.6-8.6); Neutrophils % (auto) 64.9 % (37.0-80.0); Nucleated Red Blood Cells % 0.1 %; Platelet Count (auto) 282 10^3/uL (140-450); Red Blood Cells 4.98 10^6/uL (4.5-5.90); Red Cell Distribution Width 14.1 % (11.8-14.3); White Blood Cell 7.5 10^3/uL (4.4-10.8)
[2021-01-12 07:13] LABS: Calcium 8.7 mg/dL (8.5-10.1); Potassium 3.9 mmol/L (3.5-5.1)
[2021-01-12] MEDS: HYDROcodone-ACET 5/325MG TAB PO PRN ×2 (08:33→21:44)
[2021-01-12 09:00] VITALS: BP 187/110
[2021-01-12] MEDS: amLODIPine BESYLATE 5 MG TAB PO SCH (09:36)
[2021-01-12] MEDS: FAMOTIDINE 20 MG TAB PO SCH ×2 (09:36→21:37)
[2021-01-12] MEDS: METOPROLOL SUCCINATE XL 50 MG TAB PO SCH (09:37)
[2021-01-12 13:00] VITALS: BP 143/92
[2021-01-12] MEDS ORDERED: methylPREDNISolone SOD SUCC 125 MG/2 ML VL IV ONE (14:15)
[2021-01-12] MEDS ORDERED: hydrALAZINE HCL 20 MG/ML VL IV PRN (14:15)
[2021-01-12] MEDS: PRAVASTATIN SODIUM 20 MG TAB PO SCH (21:36)
[2021-01-12] MEDS: methylPREDNISolone SOD SUCC 40 MG/ML VL IV SCH (21:37)
[2021-01-12 22:00] VITALS: BP 151/90
[2021-01-13 05:00] VITALS: BP 139/92
[2021-01-13 09:00] VITALS: BP 135/72
[2021-01-13] MEDS: methylPREDNISolone SOD SUCC 40 MG/ML VL IV SCH (09:34)
[2021-01-13] MEDS: MORPHINE SULFATE 4 MG/ML SYR/VIAL IV PRN ×2 (09:35→16:37)
[2021-01-13] MEDS: FAMOTIDINE 20 MG TAB PO SCH (09:35)
[2021-01-13] MEDS: amLODIPine BESYLATE 5 MG TAB PO SCH (09:36)
[2021-01-13] MEDS: METOPROLOL SUCCINATE XL 50 MG TAB PO SCH (09:36)
[2021-01-13] MEDS ORDERED: LIDOCAINE 5% TOPICAL PATCH TOP SCH (10:00)
[2021-01-13 13:00] VITALS: BP 138/80
[2021-01-13] MEDS: HYDROcodone-ACET 5/325MG TAB PO PRN (13:47)
[2021-01-13] MEDS ORDERED: CEL100T PO (15:39)
[2021-01-13] MEDS ORDERED: PRED20TA2 PO (15:39)
[2021-01-13 16:47] VITALS: BP 92/59
[2021-01-13 17:00] VITALS: BP 121/75
== END 2021-01-13 17:30 | disposition home or self-care (01) | DRG 552 ==
LOC: ER 15:09 → EDBD 15:09 → OVERFLOW 21:06 → CENTRAL 22:26
PROVIDERS: ADMIT Nurse Practitioner; ATTEND Internal Medicine
DX: M51.36 Other intervertebral disc degeneration, lumbar region (principal); E44.0 Moderate protein-calorie malnutrition; M19.90 Unspecified osteoarthritis, unspecified site; E66.9 Obesity, unspecified; Z20.822 Contact with and (suspected) exposure to COVID-19; E78.00 Pure hypercholesterolemia, unspecified; E78.5 Hyperlipidemia, unspecified; G89.29 Other chronic pain; I10 Essential (primary) hypertension; Z96.651 Presence of right artificial knee joint
CPT/HCPCS: 36415; 71045; 72131; 72148; 74176; 80048; 80053; 81001; 83880; 84484; 85025; 85049; 87426; 93005; 96374; 96375; 97110; 97116; 97163; 97530; G0378; J2405

== ENCOUNTER 2021-02-02 19:01 | Emergency (ER) | payer OTHER ==
[~2021-02-02] VITALS: Ht 152.4 cm; Wt 108.9 kg
[~2021-02-02 19:01] MED LIST changes: +CEL100T PO; +PRED20TA2 PO
[2021-02-02] MEDS ORDERED: LIDOCAINE 1% HCL (LOCAL ANESTH.) INJ 20ML MDV ONE (19:33)
[2021-02-02] MEDS ORDERED: LIDOCAINE 1% HCL (LOCAL ANESTH.) INJ 20ML MDV ID ONE (19:33)
[2021-02-02] MEDS ORDERED: fentaNYL CITRATE 100 MCG/2 ML VL ONE (22:22)
[2021-02-02] MEDS ORDERED: MIDAZOLAM HCL 1MG/1ML-2 ML VIAL ONE (22:37)
[2021-02-02] MEDS ORDERED: KETAMINE HCL 10 ML ONE (22:46)
[2021-02-03] MEDS ORDERED: MIDAZOLAM HCL 1MG/1ML-2 ML VIAL IV ONE
[2021-02-03] MEDS ORDERED: fentaNYL CITRATE 100 MCG/2 ML VL IV ONE (00:30)
[2021-02-03] MEDS ORDERED: KETAMINE 50mg/ML 10ml Vial (500mg/10ml) IV ONE ×2 (00:30)
[2021-02-03 01:00] VITALS: BP 156/93
== END 2021-02-03 02:18 | disposition home or self-care (01) ==
LOC: EDBD 19:01 → ER 19:05
DX: S43.015A Anterior dislocation of left humerus, initial encounter (principal); W01.0XXA Fall on same level from slipping, tripping and stumbling without subsequent striking against object, initial encounter; Y93.89 Activity, other specified; Y92.89 Other specified places as the place of occurrence of the external cause; Y99.8 Other external cause status; E78.5 Hyperlipidemia, unspecified; I10 Essential (primary) hypertension
CPT/HCPCS: 23650; 73020; 73030; 96374; 96375; 99152; 99153; 99285; J2001; J2250; J3010; 24640

== ENCOUNTER 2022-03-10 19:06 | Emergency (ER) | payer OTHER ==
[~2022-03-10] VITALS: Ht 175.3 cm; Wt 90.9 kg
[2022-03-10] MEDS ORDERED: LABETALOL HCL 5 MG/ML 4ML SYRINGE IV ONE (19:45)
[2022-03-10 20:31] LABS: Basophils # (auto) 0 10 ^3/uL (0-0.2); Basophils % (auto) 0.2 % (0.0-2.0); Eosinophils # (auto) 0 10 ^3/uL (0-0.8); Eosinophils % (auto) 0.1 % (0.0-7.0); Hematocrit 43.6 % (41.0-53.0); Hemoglobin 14.2 g/dL (13.5-17.5); Lymphocytes # (auto) 1.5 10 ^3/uL (0.4-5.4); Lymphocytes % (auto) 12.6 % (10.0-50.0); Mean Corpuscular Hgb Conc. 32.6 g/dL (32.0-36.0); Monocytes # (auto) 1.1 10 ^3/uL (0-1.3); Monocytes % (auto) 9.9 % (0.0-12.0); Neutrophils # (auto) 8.9 10 ^3/uL (1.6-8.6); Neutrophils % (auto) 77.2 % (37.0-80.0); Nucleated Red Blood Cells % 0.1 %; Red Blood Cells 4.74 10^6/uL (4.5-5.90); Red Cell Distribution Width 13.2 % (11.8-14.3); White Blood Cell 11.5 10^3/uL (4.4-10.8)
[2022-03-10 20:43] LABS: Albumin 3.4 g/dL (3.4-5.0); Calcium 9.2 mg/dL (8.5-10.1); Potassium 3.9 mmol/L (3.5-5.1)
[2022-03-10 20:46] LABS: BUN/Creatinine Ratio 17.5; Bilirubin, Total 0.9 mg/dL (0.2-1.0); Total Protein 6.8 g/dL (6.4-8.2)
[2022-03-10] MEDS ORDERED: AMOX-277 PO (22:29)
[2022-03-10 22:52] VITALS: BP 152/89
== END 2022-03-10 22:55 | disposition home or self-care (01) ==
LOC: ER 19:06 → EDUNIT# 19:06 → ER 22:55
DX: R04.2 Hemoptysis (principal); R05.9 Cough, unspecified; R10.9 Unspecified abdominal pain; M79.10 Myalgia, unspecified site; I10 Essential (primary) hypertension; K21.9 Gastro-esophageal reflux disease without esophagitis; E78.5 Hyperlipidemia, unspecified; G89.29 Other chronic pain; M54.9 Dorsalgia, unspecified
CPT/HCPCS: 36415; 71045; 71250; 74176; 80053; 83880; 84484; 85025; 93005

== ENCOUNTER 2025-05-02 22:26 | Inpatient (IN) | payer OTHER ==
[~2025-05-02] VITALS: Ht 177.8 cm; Wt 96.2 kg
[~2025-05-02 22:26] MED LIST changes: -ALFU10TA33 PO; +ALFU1TAB15 PO; -AMLO-489 PO; +AMLO1TAB22 PO; +AMOX875T4 PO; +ETOD-182 PO; -ETOD400T3 PO
[2025-05-02] MEDS: ACETAMINOPHEN 325 MG TAB PO ONE (22:59)
[2025-05-02 23:03] LABS: Hemoglobin 10.1 g/dL (13.5-17.5); Nucleated Red Blood Cells % 0.0 %
[2025-05-02 23:05] LABS: Hematocrit 30.9 % (41.0-53.0); Mean Corpuscular Hemoglobin 26.5 pg (28.0-32.0); Mean Corpuscular Volume 80.9 fL (80.0-100.0)
[2025-05-02 23:10] LABS: INR 1.15 (0.9-1.15); Partial Thromboplastin Time 31.9 SEC (24.5-34.5); Prothrombin Time 12.0 sec (9.3-11.8)
[2025-05-02 23:14] LABS: Alanine Aminotransferase 11 U/L (7-40); Albumin 3.5 g/dL (3.2-4.8); Alkaline Phosphatase 67 U/L (46-116); Anion Gap 13 (5-15); BUN/Creatinine Ratio 11.0 (10.0-20.0); Blood Urea Nitrogen 10 mg/dL (9-23); Calcium 8.8 mg/dL (8.7-10.4); Carbon Dioxide 22 mmol/L (20-31); Chloride 99 mmol/L (98-107); Total Protein 6.8 g/dL (5.7-8.2)
[2025-05-02 23:15] LABS: Bilirubin, Total 0.5 mg/dL (0.2-1.0)
--- NOTE | 2025-05-02 23:15 | DVH ---
CHEST RADIOGRAPH Indication: Shortness of breath Technique: Single frontal view of the chest was obtained COMPARISON: CXRP on DOS: 03/10/22 FINDINGS: Cardiac silhouette is enlarged. Slight prominence of the pulmonary vasculature and interstitium. Pro bable trace left-sided pleural effusion with mild left basilar atelectasis / consolidation. Bones and soft tissues demonstrate no significant abnormality. IMPRESSION: Mild pulmonary venous congestion. Trace left-sided pleural effusion with mild left basilar atelectasis /consolidation.
[2025-05-02] MEDS: LACTATED RINGER'S 2,250 ML IV ONE (23:24)
[2025-05-02 23:41] LABS: Glucose 158 mg/dL (74-106); Potassium 2.9 mmol/L (3.5-5.1); Sodium 134 mmol/L (136-145)
[2025-05-02] MEDS: CEFEPIME 1GM/50ML 50 ML IV ONE (23:53)
--- NOTE | 2025-05-03 00:51 | ED.PDOC ---
History of Present Illness HPI Comments This patient is an 85-year-old male who was brought in by EMS today due for evaluation of altered mental status at home for the past day. Per EMS, family stated the patient has been confused and has been rambling about unknown topics. EMS did not afford a large medical profile. Patient's temperature was 102.7 at arrival. Additionally, patient was tachycardic, tachypneic and hypertensive on arrival. Chief Complaint: ALOC Time Seen by MD: 22:28 Primary Care Provider: ROSIE Reviewed Notes: Nurses Notes, Population Health Manager Notes Allergies: Coded Allergies: NO KNOWN ALLERGIES (Unverified , 04/19/19) Home Meds Active Scripts Amoxicillin & Pot Clavulanate (Amoxicillin/Potassium Cla) 875 Mg Tab, 875 MG PO BID for 7 Days, #14 TAB Prov:RADHA TRAN DO 03/10/22 Prednisone (Prednisone) 20 Mg Tab, 20 MG PO BIDWM, #14 MG Prov:YURY DESIR MD 01/13/21 Celecoxib (CeleBREX CAPSULE) 100 Mg Cp, 1 CAP PO BID, #60 CAP Prov:YURY DESIR MD 01/13/21 Reported Medications Doxylamine Succinate (Doxylamine Succinate) Succinat Pow, 25 MG PO QHSP, POW 04/20/19 Acetaminophen (Tylenol) 325 Mg Cap, 500 MG PO DAILY, CAP 04/20/19 Alfuzosin Hydrochloride (ALFUZOSIN HCL ER) 10 Mg Tab, 1 TAB PO QHSP, #30 TAB 11 Refills 04/20/19 Pravastatin Sodium (PRAVACHOL TABLET) 20 Mg Tb, 40 MG PO QHSP, TAB 04/20/19 Aspirin (Asa) 81 Mg Ch, 81 MG PO DAILY, TAB.CHEW 04/20/19 Magnesium Oxide (Mg Supplement (MAGNESIUM) 400 Mg Cap, 400 MG PO DAILY, CAP 04/20/19 Multiple Minerals W/ Vitamins (Calcium Citrate Plus Magn) 1 Tab Tab, 1 TAB PO DAILY, TAB 04/20/19 Cholecalciferol (VITAMIN D3) 2,000 Unit Tab, 1000 UNIT OR DAILY, TAB 04/20/19 Etodolac (Etodolac) 400 Mg Tab, 400 MG PO QAM, TAB 04/20/19 Metoprolol Succinate (Metoprolol Succinate Er) 50 Mg Tab, 50 MG PO DAILY for 30 Days, MG 04/20/19 Amlodipine Besylate (Amlodipine Besylate) 5 Mg Tab, 10 MG PO DAILY for 30 Days, MG 04/20/19 Omeprazole (Gnp Omeprazole) 20 Mg Tab, 1 TAB PO DAILY, #90 TAB 1 Refill 04/20/19 Information Source: Patient, Emergency Med Personnel Mode of Arrival: EMS Severity: Moderate Timing: Days Duration: Since onset 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 Past Medical History PAST MEDICAL HISTORY: GERD, High Lipids, HTN Surgical History: Denies all surgeries Family History Family History: Reviewed,noncontributory to illness Social History Smoker: Non-Smoker Alcohol: Denies ETOH Use Drugs: Denies Drug Use Lives In: Home Constitutional: reports: fatigue, fever, weakness; denies: chills, diaphoresis, malaise, sweats, others EENTM: denies: blurred vision, double vision, ear bleeding, ear discharge, ear drainage, ear pain, ear ringing, eye pain, eye redness, hearing loss, mouth pain, mouth swelling, nasal discharge, nose bleeding, nose congestion, nose pain, photophobia, tearing, throat pain, throat swelling, voice changes, others Respiratory: denies: cough, hemoptysis, orthopnea, SOB at rest, shortness of breath, SOB with excertion, stridor, wheezing, others Cardiovascular: denies: chest pain, dizzy spells, diaphoresis, Dyspnea on exertion, edema, irregular heart beat, left arm pain, lightheadedness, palpitations, PND, syncope, others Gastrointestinal: denies: abdomen distended, abdominal pain, blood streaked bowels, constipated, diarrhea, dysphagia, difficulty swallowing, hematemesis, melena, nausea, poor appetite, poor fluid intake, rectal bleeding, rectal pain, vomiting, others Genitourinary: denies: burning, dysuria, flank pain, frequency, hematuria, incontinence, penile discharge, penile sore, pain, testicle pain, testicle swelling, urgency, others Neurological: denies: dizziness, fainting, headache, left sided numbness, left sided weakness, numbness, paresthesia, pre-existing deficit, right sided numbness, right sided weakness, seizure, speech problems, tingling, tremors, weakness, others Musculoskeletal: denies: back pain, gout, joint pain, joint swelling, muscle pain, muscle stiffness, neck pain, others Integumetry: denies: bruises, change in color, change in hair/nails, dryness, laceration, lesions, lumps, rash, wounds, others Allergic/Immunocompromised: denies: Difficulty Healing, Frequent Infections, Hives, Itching, others Hematologic/Lymphatic: denies: anemia, blood clots, easy bleeding, easy bruising, swollen glands, others Endocrine: denies: excessive hunger, excessive sweating, excessive thirst, excessive urination, flushing, intolerance to cold, intolerance to heat, unexplained weight gain, unexplained weight loss, others Psychiatric: denies: anxiety, bipolar disorder, depression, hopeless, panic disorder, schizophrenia, sleepless, suicidal, others Unable to Obtain due to: Altered Mental Status Physical Exam General Appearance: Moderate Distress (Patient presents as a moderately ill 85-year-old male. Patient is a poor historian.), Normal HEENT: Normal ENT Inspection, Pharynx Normal, TMs Normal Neck: Full Range of Motion, Non-Tender, Normal, Normal Inspection Respiratory: Chest Non-Tender, No Accessory Muscle Use, No Respiratory Distres s, Other (Patient has patchy rhonchi with patchy wheezing on right middle lobe, right lower lobe and left lower lobe. No accessory muscle use.) Cardiovascular: No Edema, No JVD, No Murmur, No Gallop, Normal Peripheral Pulses, Tachycardia Breast Exam: Deferred Gastrointestinal: No Organomegaly, Non Tender, No Pulsatile Mass, Normal Bowel Sounds, Soft Genitalia: Deferred Pelvic: Deferred Rectal: Deferred Extremities: No calf tenderness, Non-tender Neurologic: Disoriented Cerebellar Function: NOT DONE Reflexes: NOT DONE Skin: Dry, Normal Color, Warm Lymphatic: No Adenopathy Was a procedure done? Was a procedure done?: No Differential Dx Considerations may include: Sepsis, electrolyte abnormality, acute coronary syndrome, pneumonia, viral upper respiratory illness, viral illness X-Ray, Labs, Meds, VS Vital Signs Date Time Temp Pulse Resp B/P (MAP) Pulse Ox O2 Delivery O2 Flow Rate FiO2 05/03/25 00:05 100.0 05/03/25 00:04 100.0 100.0 05/02/25 23:00 116 25 109/75 (86) 95 05/02/25 23:00 Room Air* 0 21 05/02/25 22:59 99.6 05/02/25 22:56 99.6 115 22 122/64 (83) 93 99.6 05/02/25 22:36 102.7 121 34 146/107 95 102.7 05/02/25 22:28 125 Lab Test 05/02/25 23:35 05/02/25 22:40 05/02/25 00:23 Range/Units Troponin I High Sensitivity 12 10 </=54 ng/L White Blood Count 20.8 H 4.4-10.8 10^3/uL Red Blood Count 3.82 L 4.5-5.90 10^6/uL Hemoglobin 10.1 L 13.5-17.5 g/dL Hematocrit 30.9 L 41.0-53.0 % Mean Corpuscular Volume 80.9 80.0-100.0 fL Mean Corpuscular Hemoglobin 26.5 L 28.0-32.0 pg Mean Corpuscular Hemoglobin Concent 32.7 32.0-36.0 g/dL Red Cell Distribution Width 14.8 H 11.8-14.3 % Platelet Count 610 H 140-450 10^3/uL Mean Platelet Volume 5.9 L 6.9-10.8 fL Neutrophils (%) (Auto) 88.5 H 37.0-80.0 % Lymphocytes (%) (Auto) 5.5 L 10.0-50.0 % Monocytes (%) (Auto) 5.9 0.0-12.0 % Eosinophils (%) (Auto) 0.0 0.0-7.0 % Basophils (%) (Auto) 0.1 0.0-2.0 % Neutrophils # (Auto) 18.4 H 1.6-8.6 10 ^3/uL Lymphocytes # (Auto) 1.1 0.4-5.4 10 ^3/uL Monocytes # (Auto) 1.2 0-1.3 10 ^3/uL Eosinophils # (Auto) 0 0-0.8 10 ^3/uL Basophils # (Auto) 0 0-0.2 10 ^3/uL Nucleated Red Blood Cells 0.0 % Prothrombin Time 12.0 H 9.3-11.8 sec Prothrombin Time INR 1.15 0.9-1.15 Activated Partial Thromboplast Time 31.9 24.5-34.5 SEC Sodium Level 134 L 136-145 mmol/L Potassium Level 2.9 L 3.5-5.1 mmol/L Chloride Level 99 98-107 mmol/L Carbon Dioxide Level 22 20-31 mmol/L Anion Gap 13 5-15 Blood Urea Nitrogen 10 9-23 mg/dL Creatinine 0.91 0.700-1.30 mg/dL Glomerular Filtration Rate Calc 82 >90 mL/min BUN/Creatinine Ratio 11.0 10.0-20.0 Serum Glucose 158 H 74-106 mg/dL Lactic Acid Level 2.0 0.4-2.0 mmol/L Calcium Level 8.8 8.7-10.4 mg/dL Total Bilirubin 0.5 0.2-1.0 mg/dL Aspartate Amino Transferase (AST) 18 13-40 U/L Alanine Aminotransferase (ALT) 11 7-40 U/L Alkaline Phosphatase 67 46-116 U/L Total Protein 6.8 5.7-8.2 g/dL Albumin 3.5 3.2-4.8 g/dL Influenza Type A Antigen Pending Influenza Type B Antigen Pending SARS-CoV-2 Antigen (Rapid) Pending Current Medications Medications (Trade) Dose Ordered Sig/Avis Route Start Time Stop Time Status Last Admin Lactated Ringer's 2,250 ml @ 2,250 mls/hr ONCE ONCE IV 05/02/25 22:30 05/02/25 23:29 DC 05/02/25 23:24 Acetaminophen (Tylenol Tablet) 1,000 mg ONCE ONCE PO 05/02/25 22:30 05/02/25 22:35 DC 05/02/25 22:59 Cefepime HCl 50 ml @ 100 mls/hr ONCE ONCE IV 05/02/25 23:15 05/02/25 23:44 DC 05/02/25 23:53 X-Ray, Labs, Meds, VS Comment All studies performed the ED were evaluated by me personally. Sepsis protocol was initiated at arrival due to elevated temperature, tachypnea, tachycardia and hypertension. Serum laboratories confirmed a significant leukocytosis, anemia, thrombocytosis, hyponatremia and hypokalemia. Chest x-ray appears to represent a pneumonia. EKG shows a sinus tachycardia with a rate of 125. 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 MS interval of 153 and QT interval of 340. Sepsis protocol was initiated and hospitalist can review antibiotic therapy moving forward. Patient should receive a cardiac consultation for evaluation of EKG findings. Time of 1ST Reevaluation: 00:47 Reevaluation 1ST: Improved Consultation: PCP, Cardiology Patient Education/Counseling: Diagnosis, Treatment Family Education/Counseling: Diagnosis, Treatment SEPSIS Sepsis Screen Date sepsis recognized/suspect: May 02, 2025 Time Sepsis recognized/suspect: 2228 Recent Procedure: No On Antibiotic Therapy: No Respiratory Rate >20: Yes Heart Rate >90: Yes Temp<36 C (96.8 F) or >38.3 C: Yes SBP <90 or MAP <65 mmHG: No New Acute Mental Status Change: Yes Is the patient on CPAP, BIPAP,: No Physician Orders Electrocardigram (05/02/25 22:31) Urinalysis (05/02/25 22:30) Chest Portable (05/02/25 22:30) Accucheck (05/02/25 22:30) Blood Culture (05/02/25 22:30) Cefepime 1gm/50ml (Maxipime 1gm/50ml) (05/03/25 06:00) Notify Md If Map <65 Or Bp<90 (05/02/25 22:30) If Map<65 Start Vasopressor (05/02/25 22:30) Sepsis Reassesment After Fluid (05/02/25 23:30) Covid19 Antigen Loree (05/02/25 ) Rapid Influenza A&B (05/02/25 22:30) Systems Test Engineer (05/02/25 22:35) Heplock Iv (05/02/25 22:35) Troponin-I Hs (05/03/25 01:35) Potassium Effervesent Tab (Klor-Con/Ef) (05/03/25 00:45) Potassium Chl 20meq/100ml (05/03/25 00:45) Vital Signs Date Time Temp Pulse Resp B/P (MAP) Pulse Ox O2 Delivery O2 Flow Rate FiO2 05/03/25 00:05 100.0 05/03/25 00:04 100.0 100.0 05/02/25 23:00 116 25 109/75 (86) 95 05/02/25 23:00 Room Air* 0 21 05/02/25 22:59 99.6 05/02/25 22:56 99.6 115 22 122/64 (83) 93 99.6 05/02/25 22:36 102.7 121 34 146/107 95 102.7 05/02/25 22:28 125 Laboratory Tests Test 05/02/25 22:40 Lactic Acid Level 2.0 mmol/L (0.4-2.0) White Blood Count 20.8 10^3/uL (4.4-10.8) H Medications Medications Dose Ordered Sig/Avis Route Start Time Stop Time Status Last Admin Dose Admin Acetaminophen 1,000 mg ONCE ONCE PO 05/02/25 22:30 05/02/25 22:35 DC 05/02/25 22:59 Cefepime HCl 50 ml @ 100 mls/hr ONCE ONCE IV 05/02/25 23:15 05/02/25 23:44 DC 05/02/25 23:53 Lactated Ringer's 2,250 ml @ 2,250 mls/hr ONCE ONCE IV 05/02/25 22:30 05/02/25 23:29 DC 05/02/25 23:24 Departure 1 Departure Time of Disposition: 00:48 Impression: Primary Impression: Sepsis Additional Impressions: Metabolic encephalopathy Pneumonia Anemia Thrombocytosis Hyponatremia Hypokalemia Disposition: ADMITTED INPATIENT Condition: Fair Discharged With: Self Critical Care Note Critical Care Time?: Yes (45 min-critical care time only) Critical care comment: Due to the high probability of a clinically significant and possibly life- threatening deterioration, the patient required my highest level of preparedness to intervene emergently and therefore, I personally provided 45 minutes of critical care time exclusive of time spent on separate billable procedures. This critical care time includes, but isn't limited to, obtaining additional history, re-examination of the patient, re-examination of pulse oximetry, ordering and reviewing of studies as well as arranging an urgent treatment plan with the development of a long-term management plan, evaluation of the patient's response to treatment as well as frequent reassessments and discussions with other providers. Stability Stability form required: No Heart Score Heart Score: Heart Score Response (Comments) Value History Slightly Suspicious 0 EKG Repolarization Disturb 1 Age >65 2 Risk Factors 1 or 2 risk factors 1 Troponin Normal limit 0 Total 4 PAIGE CONNOR PAC May 03, 2025 00:51
[2025-05-03 00:52] LABS: COVID19 ANTIGEN SOFIA FIA NEGATIVE (NEGATIVE)
[2025-05-03] MEDS: POTASSIUM EFFERVESENT TAB 25 MEQ PO ONE (00:59)
[2025-05-03] MEDS: POTASSIUM CHL 20MEQ/100ML 100 ML IV SCH (01:13)
[2025-05-03] MEDS ORDERED: DOCUSATE SOD 100 MG CAP PO PRN (02:30)
[2025-05-03] MEDS ORDERED: VANCOMYCIN PER PHARMACY 0 MG IV SCH (02:30)
--- NOTE | 2025-05-03 02:49 | DVHHP2 ---
History of Present Illness Reason for Visit: Altered level of consciousness History of Present Illness The patient is a 85-year-old male with past medical history of GERD, hyperlipidemia, and hypertension who presented to [facility] ED for evaluation of altered level of consciousness. As reported by EMS, family reports patient has been confused, rambling about unknown topics, associated with generalized weakness. When EMS arrived on the scene, the patient's temperature was 102.7 F, tachycardia, tachypneic, and hypertensive. Patient was stabilized EN route to our facility ED. Patient was seen and evaluated in the ED, laboratory data shows WBC 20.8, hemoglobin 10.1, hematocrit 30.9, platelets 610, sodium 134, potassium 2.9, BUN 10, creatinine 0.91, GFR 82, glucose 158, calcium 8.8, troponin 12, blood pressure 109/75, heart rate 116, temperature 100.0 F, O2 saturation 96% on oxygen. Chest x-ray revealing pulmonary vascular congestion, trace left-sided pleural effusion with mild left bibasilar atelectasis/consolidation. Patient was started on IV antibiotic regimen vancom ycin, please see medication orders section in the computer. On my assessment, patient remains altered, no diaphoresis, shortness of breaths, diarrhea, nausea, vomiting, no fever, chills. Patient was admitted for further evaluation and medical management. Past Medical History GERD, High Lipids, HTN Past Surgical History Denies all surgeries Family History Reviewed, noncontributory to the management of this case. Past Social History The patient lives at home, denies smoking, alcohol or illicit drugs abuse. Review of Systems Constitutional: Yes: Fever, Weakness, Other (Fatigue); No: Chills, Sweats, Malaise Eyes: No: Pain, Vision change, Conjunctivae inflammation, Eyelid inflammation, Other, Redness ENT: No: Ear pain, Ear discharge, Nose pain, Nose discharge, Nose congestion, Mouth pain, Mouth swelling, Throat pain, Throat swelling, Other Respiratory: No: Cough, Dry, Shortness of breath, SOB with excertion, Wheezing, Hemoptysis, Pleuritic Pain, Sputum, Wheezing, Other Cardiovascular: No: Chest Pain, Palpitations, Orthopnea, Paroxysmal Noc. Dyspnea, Edema, Lt Headedness, Other Gastrointestinal: No: Nausea, Vomiting, Abdominal Pain, Diarrhea, Constipation, Melena, Hematochezia, Other Genitourinary: No Dysuria, No Frequency, No Incontinence, No Hematuria, No Retention, No Other Musculoskeletal: No: other, neck pain, shoulder pain, arm pain, back pain, hand pain, leg pain, foot pain Skin: No: Rash, Lesions, Jaundice, Bruising, Other Neurological: Other (Altered level of consciousness); No: Weakness, Numbness, Incoordination, Change in speech, Confusion, Seizures Allergies: Coded Allergies: NO KNOWN ALLERGIES (Unverified , 04/19/19) Medications Current Medications Medications Dose Ordered Sig/Avis Route Start Time Stop Time Status Last Admin Dose Admin Cefepime HCl 50 ml @ 12.5 mls/hr Q8HR IV 05/03/25 06:00 UNV Potassium Chloride 100 ml @ 50 mls/hr Q2H IV 05/03/25 00:45 05/03/25 04:44 05/03/25 01:13 50 MLS/HR Aspirin 81 mg DAILY PO 05/03/25 10:00 Atorvastatin Calcium 20 mg HS PO 05/03/25 22:00 Famotidine 20 mg DAILY IV 05/03/25 10:00 Vancomycin HCl 0 ml @ 0 mls/hr UD IV 05/03/25 02:30 UNV Sodium Chloride 1,000 ml @ 60 mls/hr [id number] IV 05/03/25 02:30 Acetaminophen/ Hydrocodone Bitart 1 tab Q4HP PRN PO 05/03/25 02:30 Ondansetron HCl 4 mg Q4HP PRN IV 05/03/25 02:30 Docusate Sodium 100 mg BIDPRN PRN PO 05/03/25 02:30 Acetaminophen 500 mg Q6HP PRN PO 05/03/25 02:30 Exam Vital Signs Vital Signs Date Time Temp Pulse Resp B/P (MAP) Pulse Ox O2 Delivery O2 Flow Rate FiO2 05/03/25 02:00 95 25 127/56 (79) 95 05/03/25 00:48 98.4 98.4 05/02/25 23:00 Room Air* 0 21 General Appearance: Alert, Cooperative, No acute distress, Other (Oriented x1) HEENT: PERRLA, EOMI, Mucous membr. moist/pink Respiratory: Normal air movement Cardiovascular: Regular rate, Normal S1, Normal S2, No murmurs Abdominal: Normal bowel sounds, Soft, No tenderness, No hepatospenomegaly, No masses Extremities: No clubbing, No cyanosis, No edema, Normal pulses, No tenderness/swelling Skin: No rashes, No significant lesion Neuro: Normal speech, Normal tone, Sensation intact, Cranial nerves 3-12 NL, Reflexes 2+, Other (Generalized weakness) Psych/Mental Status: Mental status NL, Mood NL Labs/Xrays Labs Test 05/03/25 01:22 05/02/25 23:00 05/02/25 22:40 05/02/25 00:23 Range/Units Troponin I High Sensitivity 13 </=54 ng/L White Blood Count 20.8 H 4.4-10.8 10^3/uL Red Blood Count 3.82 L 4.5-5.90 10^6/uL Hemoglobin 10.1 L 13.5-17.5 g/dL Hematocrit 30.9 L 41.0-53.0 % Mean Corpuscular Volume 80.9 80.0-100.0 fL Mean Corpuscular Hemoglobin 26.5 L 28.0-32.0 pg Mean Corpuscular Hemoglobin Concent 32.7 32.0-36.0 g/dL Red Cell Distribution Width 14.8 H 11.8-14.3 % Platelet Count 610 H 140-450 10^3/uL Mean Platelet Volume 5.9 L 6.9-10.8 fL Neutrophils (%) (Auto) 88.5 H 37.0-80.0 % Lymphocytes (%) (Auto) 5.5 L 10.0-50.0 % Monocytes (%) (Auto) 5.9 0.0-12.0 % Eosinophils (%) (Auto) 0.0 0.0-7.0 % Basophils (%) (Auto) 0.1 0.0-2.0 % Neutrophils # (Auto) 18.4 H 1.6-8.6 10 ^3/uL Lymphocytes # (Auto) 1.1 0.4-5.4 10 ^3/uL Monocytes # (Auto) 1.2 0-1.3 10 ^3/uL Eosinophils # (Auto) 0 0-0.8 10 ^3/uL Basophils # (Auto) 0 0-0.2 10 ^3/uL Nucleated Red Blood Cells 0.0 % Prothrombin Time 12.0 H 9.3-11.8 sec Prothrombin Time INR 1.15 0.9-1.15 Activated Partial Thromboplast Time 31.9 24.5-34.5 SEC Sodium Level 134 L 136-145 mmol/L Potassium Level 2.9 L 3.5-5.1 mmol/L Chloride Level 99 98-107 mmol/L Carbon Dioxide Level 22 20-31 mmol/L Anion Gap 13 5-15 Blood Urea Nitrogen 10 9-23 mg/dL Creatinine 0.91 0.700-1.30 mg/dL Glomerular Filtration Rate Calc 82 >90 mL/min BUN/Creatinine Ratio 11.0 10.0-20.0 Serum Glucose 158 H 74-106 mg/dL Lactic Acid Level 2.0 0.4-2.0 mmol/L Calcium Level 8.8 8.7-10.4 mg/dL Total Bilirubin 0.5 0.2-1.0 mg/dL Aspartate Amino Transferase (AST) 18 13-40 U/L Alanine Aminotransferase (ALT) 11 7-40 U/L Alkaline Phosphatase 67 46-116 U/L Total Protein 6.8 5.7-8.2 g/dL Albumin 3.5 3.2-4.8 g/dL Influenza Type A Antigen Negative Negative Influenza Type B Antigen Negative Negative SARS-CoV-2 Antigen (Rapid) Negative NEGATIVE PATIENT: TACHO HUYNH ACCT: [id number] UNIT: [id number] : 1940 LOC: ER ROOM / BED: / AGE / SEX: 85 / M ADM STATUS: REG ER SERVICE 29 ORDERING PHYSICIAN: PAIGE CONNOR PAC PROCEDURE(s): CXRP - CHEST PORTABLE REASON: Shortness of breath ORDER NUMBER(s): [id number], ACCESSION NUMBER(s): [id number] CHEST RADIOGRAPH Indication: Shortness of breath Technique: Single frontal view of the chest was obtained COMPARISON: CXRP on DOS: 03/10/22 FINDINGS: Cardiac silhouette is enlarged. Slight prominence of the pulmonary vasculature and interstitium. Probable trace left-sided pleural effusion with mild left basilar atelectasis/consolidation. Bones and soft tissues demonstrate no significant abnormality. IMPRESSION: Mild pulmonary venous congestion. Trace left-sided pleural effusion with mild left basilar atelectasis/consolidation. SEPSIS Sepsis Screen Date sepsis recognized/suspect: May 02, 2025 Time Sepsis recognized/suspect: 2228 Recent Procedure: No On Antibiotic Therapy: No Respiratory Rate >20: Yes Heart Rate >90: Yes Temp<36 C (96.8 F) or >38.3 C: Yes SBP <90 or MAP <65 mmHG: No New Acute Mental Status Change: Yes Is the patient on CPAP, BIPAP,: No Physician Orders Electrocardigram (05/02/25 22:31) Urinalysis (05/02/25 22:30) Chest Portable (05/02/25:30) Accucheck (05/02/25 22:30) Blood Culture (05/02/25 22:30) Cefepime 1gm/50ml (Maxipime 1gm/50ml) (05/03/25 06:00) Notify Md If Map <65 Or Bp<90 (05/02/25 22:30) If Map<65 Start Vasopressor (05/02/25 22:30) Sepsis Reassesment After Fluid (05/02/25 23:30) Vocational Psychologist (05/02/25 22:35) Heplock Iv (05/02/25 22:35) Potassium Chl 20meq/100ml (05/03/25 00:45) Complete Blood Count (05/03/25 04:00) Comprehensive Metabolic Panel (05/03/25 04:00) Aspirin Tablet (05/03/25 10:00) Atorvastatin (Lipitor) (05/03/25 22:00) Famotidine Injection (Pepcid Injection) (05/03/25 10:00) Type And Screen (05/03/25 02:30) Vancomycin Per Pharmacy (05/03/25 02:30) Hemoglobin A1c (05/03/25 02:30) Allergies (05/03/25 02:30) Code Status (05/03/25 02:30) Sodium Chloride 0.9% (05/03/25 02:30) Oxygen Per Hour (05/03/25 02:30) Hydrocodone-Acet 5/325mg Tab ([place] 5/32 (05/03/25 02:30) Ondansetron Hcl (Zofran) (05/03/25 02:30) Docusate Sodium Capsule (Colace Capsule) (05/03/25 02:30) Fall Risk Precautions In Place QSHIFT (05/03/25 02:30) Complete Blood Count (05/04/25 04:00) Comprehensive Metabolic Panel (05/04/25 04:00) Cardiac Diet-2gna,Lofat,Lochol (05/03/25 Breakfast) Condition: Serious (05/03/25 02:30) Acetaminophen Tablet (Tylenol Tablet) (05/03/25 02:30) Maintain Bed Rest (05/03/25 02:30) Sequential Compression Device (05/03/25 ) Admit (05/03/25 02:48) Nitroglycerin Sublingual (Ntrostat Subli (05/03/25 03:00) Morphine Sulfate Injection (05/03/25 03:00) Vital Signs Date Time Temp Pulse Resp B/P (MAP) Pulse Ox O2 Delivery O2 Flow Rate FiO2 05/03/25 02:00 95 25 127/56 (79) 95 05/03/25 00:48 98.4 98.4 05/03/25 00:05 100.0 05/03/25 00:04 100.0 100.0 05/03/25 00:00 103 25 108/65 (79) 93 05/02/25 23:00 116 25 109/75 (86) 95 05/02/25 23:00 Room Air* 0 21 05/02/25 22:59 99.6 05/02/25 22:56 99.6 115 22 122/64 (83) 93 99.6 05/02/25 22:36 102.7 121 34 146/107 95 102.7 05/02/25 22:28 125 Laboratory Tests Test 05/02/25 22:40 Lactic Acid Level 2.0 mmol/L (0.4-2.0) White Blood Count 20.8 10^3/uL (4.4-10.8) H Medications Medications Dose Ordered Sig/Avis Route Start Time Stop Time Status Last Admin Dose Admin Acetaminophen 1,000 mg ONCE ONCE PO 05/02/25 22:30 05/02/25 22:35 DC 05/02/25 22:59 1,000 MG Cefepime HCl 50 ml @ 100 mls/hr ONCE ONCE IV 05/02/25 23:15 05/02/25 23:44 DC 05/02/25 23:53 100 MLS/HR Lactated Ringer's 2,250 ml @ 2,250 mls/hr ONCE ONCE IV 05/02/25 22:30 05/02/25 23:29 DC 05/02/25 23:24 2,250 MLS/HR Potassium Bicarbonate 25 meq ONCE ONCE PO 05/03/25 00:45 05/03/25 00:46 DC 05/03/25 00:59 25 MEQ Potassium Chloride 100 ml @ 50 mls/hr Q2H IV 05/03/25 00:45 05/03/25 04:44 05/03/25 01:13 50 MLS/HR Assessment/Plan Assessment/Plan Sepsis, unspecified organism Thrombocytosis Hyperglycemia Metabolic encephalopathy Anemia, unspecified Electrolyte imbalance Generalized weakness Pneumonia, unspecified organism Plan 1. Admit to telemetry unit 2. Breathing treatment 3. Pain control management 4. IV antibiotic management 5. Management of fluids and electrolytes 6. Consultation for hospitalist 7. Diagnostic test chest x-ray 8. DVT prophylaxis-on aspirin 9. Repeat labs CBC, CMP in a.m. 10. Home medication reviewed and reconciled 11. Continue with current medical management 12. Treatment plan discussed with patient and RN. Patient verbalized understanding. Plan discussed with: Patient, Other (RN) My Orders Orders - ELLEN MARIE DNP Procedure Category Date Status Time Complete Blood Count LAB 05/03/25 Logged 04:00 Comprehensive LAB 05/03/25 Logged Metabolic Panel 04:00 Aspirin Tablet PHA 05/03/25 In Process 10:00 Atorvastatin (Lipitor) PHA 05/03/25 In Process 22:00 Famotidine Injection PHA 05/03/25 In Process (Pepcid Injection) 10:00 Type And Screen BBK 05/03/25 Logged 02:30 Vancomycin Per PHA 05/03/25 Logged Pharmacy 02:30 Hemoglobin A1c LAB 05/03/25 Logged 02:30 Allergies SAMARA 05/03/25 In Process 02:30 Code Status CODE 05/03/25 Transmitted 02:30 Sodium Chloride 0.9% PHA 05/03/25 In Process 02:30 Oxygen Per Hour RT 05/03/25 Transmitted 02:30 Hydrocodone-Acet PHA 05/03/25 In Process 5/325mg Tab ([place] 02:30 Ondansetron Hcl PHA 05/03/25 In Process (Zofran) 02:30 Docusate Sodium PHA 05/03/25 In Process Capsule (Colace 02:30 Fall Risk Precautions SAMARA 05/03/[address] 02:30 Complete Blood Count LAB 05/04/25 Verified 04:00 Comprehensive LAB 05/04/25 Verified Metabolic Panel 04:00 Cardiac DIET 05/03/25 Transmitted Diet-2gna,Lofat,Lochol Breakfast Condition: Serious SAMARA 05/03/25 In Process 02:30 Acetaminophen Tablet PHA 05/03/25 In Process (Tylenol Tablet) 02:30 Maintain Bed Rest SAMARA 05/03/25 In Process 02:30 Sequential SAMARA 05/03/25 In Process Compression Device Admit ADMIT 05/03/25 Verified 02:48 Nitroglycerin PHA 05/03/25 Verified Sublingual (Ntrostat 03:00 Morphine Sulfate PHA 05/03/25 Verified Injection 03:00 Problem List: (1) Sepsis, unspecified organism (2) Thrombocytosis (3) Hyperglycemia (4) Metabolic encephalopathy (5) Anemia, unspecified (6) Electrolyte imbalance (7) Generalized weakness (8) Pneumonia, unspecified organism Date of Service: May 03, 2025 Billing Provider: ELLEN MARIE DNP Common Visit Codes: [id number] INP/OBS CARE (HIGH) ELLEN MARIE DNP May 03, 2025 02:49
[2025-05-03 02:59] LABS: Urine Protein, UAD 1+ (Negative); Urine WBC Clumps PRESENT /hpf (None Seen)
[2025-05-03] MEDS ORDERED: MORPHINE SULFATE INJ 2 MG/ml SYRG IV PRN (03:00)
[2025-05-03] MEDS ORDERED: NITROGLYCERIN 0.4 MG SL TAB SL PRN (03:00)
[2025-05-03] MEDS ORDERED: VANCOMYCIN 1GM/250ML KIT 250 ML IV ONE ×2 (03:15→04:45)
[2025-05-03] MEDS: SODIUM CHLORIDE 0.9% 1,000 ML IV SCH (03:35)
[2025-05-03] MEDS: ONDANSETRON HCL 4 MG/2 ML VIAL IV PRN (04:54)
[2025-05-03] MEDS: PANTOPRAZOLE 40 MG/10 ML VIAL INJ IV ONE (06:02)
[2025-05-03] MEDS: VANCOMYCIN 1GM/250ML KIT 250 ML IV ONE ×2 (06:19→07:45)
[2025-05-03] MEDS: ACETAMINOPHEN 325 MG TAB PO PRN (06:23)
--- NOTE | 2025-05-03 06:36 | ECG ---
[facility] Test Date: 2025-05-02 Test Time: 22:28:17 Pat Name: TACHO HUYNH Department: [facility] ED Patient ID: [facility]-[id number] Room: 0240T Gender: M Cold Header: LIYAH : 1940 Requested By: PAIGE CONNOR Order Number: [id number] Reading MD: Jose Moran Measurements Intervals [place] Rate: 125 P: 0 NH: 153 QRS: 120 QRSD: 102 T: -9 QT: 340 QTc: 491 Interpretive Statements Sinus tachycardia Multiple premature complexes, vent & supraven Inferior infarct, old Electronically Signed On 05-04-2025 18:46:26 PDT by Jose Moran Please click the below link to view image of tracing.
[2025-05-03 06:39] LABS: Hematocrit 30.1 % (41.0-53.0); Hemoglobin 9.8 g/dL (13.5-17.5); Mean Corpuscular Hemoglobin 26.8 pg (28.0-32.0); Mean Corpuscular Volume 82.5 fL (80.0-100.0)
[2025-05-03 06:59] LABS: Alanine Aminotransferase 10 U/L (7-40); Albumin 3.3 g/dL (3.2-4.8); Alkaline Phosphatase 63 U/L (46-116); Anion Gap 15 (5-15); BUN/Creatinine Ratio 9.6 (10.0-20.0); Blood Urea Nitrogen 9 mg/dL (9-23); Carbon Dioxide 21 mmol/L (20-31); Chloride 99 mmol/L (98-107); Total Protein 6.3 g/dL (5.7-8.2)
[2025-05-03 07:00] LABS: Bilirubin, Total 1.1 mg/dL (0.2-1.0)
[2025-05-03 07:06] LABS: Calcium 8.6 mg/dL (8.7-10.4); Glucose 146 mg/dL (74-106); Potassium 3.2 mmol/L (3.5-5.1); Sodium 135 mmol/L (136-145)
[2025-05-03 08:06] VITALS: PULSE 95; RESP 21; O2SAT 99
[2025-05-03 08:10] LABS: Total Cells Counted 100.0 (100)
[2025-05-03] MEDS: CEFEPIME 1GM/50ML 50 ML IV SCH (10:31)
[2025-05-03] MEDS: FAMOTIDINE (10MG/ML) 2ML VL IV SCH (10:32)
[2025-05-03] MEDS: PANTOPRAZOLE 40 MG/10 ML VIAL INJ IV SCH (10:32)
--- NOTE | 2025-05-03 15:14 | DVHPN2 ---
Reviewed: Care Plan, H&P, Labs, Medications, Previous Orders, Radiology Changes from previous H/P or p: No Changes Objective Vitals Vital Signs Date Time Temp Pulse Resp B/P (MAP) Pulse Ox O2 Delivery O2 Flow Rate FiO2 05/03/25 14:00 98.5 81 21 105/64 (78) 94 98.5 05/03/25 08:06 Room Air* 0 21 Medications Current Medications Medications Dose Ordered Sig/Avis Route Start Time Stop Time Status Last Admin Dose Admin Cefepime HCl 50 ml @ 12.5 mls/hr Q8H IV 05/03/25 08:00 05/03/25 10:31 12.5 MLS/HR Aspirin 81 mg DAILY PO 05/03/25 10:00 05/03/25 10:32 81 MG Atorvastatin Calcium 20 mg HS PO 05/03/25 22:00 Famotidine 20 mg DAILY IV 05/03/25 10:00 05/03/25 10:32 20 MG Vancomycin HCl 0 ml @ 0 mls/hr UD IV 05/03/25 02:30 Sodium Chloride 1,000 ml @ 60 mls/hr [id number] IV 05/03/25 02:30 05/03/25 03:35 60 MLS/HR Acetaminophen/ Hydrocodone Bitart 1 tab Q4HP PRN PO 05/03/25 02:30 Ondansetron HCl 4 mg Q4HP PRN IV 05/03/25 02:30 05/03/25 04:54 4 MG Docusate Sodium 100 mg BIDPRN PRN PO 05/03/25 02:30 Acetaminophen 500 mg Q6HP PRN PO 05/03/25 02:30 05/03/25 06:23 500 MG Nitroglycerin 0.4 mg Q5MINP PRN SL 05/03/25 03:00 Morphine Sulfate 2 mg Q30M PRN IV 05/03/25 03:00 Pantoprazole Sodium 40 mg DAILY IV 05/03/25 10:00 05/03/25 10:32 40 MG Laboratory Results Laboratory Tests 05/03/25 06:03 Chemistry Test 05/02/25 22:40 05/03/25 06:03 Albumin 3.5 g/dL (3.2-4.8) 3.3 g/dL (3.2-4.8) Calcium Level 8.8 mg/dL (8.7-10.4) 8.6 mg/dL (8.7-10.4) L Total Protein 6.8 g/dL (5.7-8.2) 6.3 g/dL (5.7-8.2) Coagulation Test 05/02/25 22:40 Prothrombin Time 12.0 sec (9.3-11.8) H Prothrombin Time INR 1.15 (0.9-1.15) Activated Partial Thromboplast Time 31.9 SEC (24.5-34.5) LFT Test 05/02/25 22:40 05/03/25 06:03 Alanine Aminotransferase (ALT) 11 U/L (7-40) 10 U/L (7-40) Alkaline Phosphatase 67 U/L (46-116) 63 U/L (46-116) Aspartate Amino Transferase (AST) 18 U/L (13-40) 20 U/L (13-40) Total Bilirubin 0.5 mg/dL (0.2-1.0) 1.1 mg/dL (0.2-1.0) H HgA1c, TSH Test 05/03/25 06:03 Hemoglobin A1c 5.3 % A1C (<5.7) Urinalysis Test 05/02/25 23:00 Urine Color Yellow (Yellow) Urine Clarity Turbid (Clear) H Urine pH 5.5 (5.0-9.0) Urine Specific [place] 1.017 (1.001-1.035) Urine Protein 1+ (Negative) H Urine Ketones Negative (Negative) Urine Blood 1+ /uL (Negative) H Urine Nitrite 2+ (Negative) H Urine Bilirubin Negative (Negative) Urine Urobilinogen Normal mg/dL (Negative) Urine Leukocyte Esterase 3+ /uL (Negative) Urine RBC 9 /hpf (0 - 3) Urine WBC Clumps Present /hpf (None Seen) Urine Microscopic WBC 228 /HPF (0-3) H Urine Squamous Epithelial Cells Few /hpf (<5) Urine Bacteria Mod /hpf (None Seen) H Urine Glucose Normal mg/dL (Normal) Labs and/or images reviewed: Labs reviewed by me, Image(s) reviewed by me Assessment/Plan Assessment/Plan [place] [address] hypotension and altered mental status secondary to pneumonia versus urinary tract infection Left lower lobe pneumonia: Cefepime vancomycin Acute urinary tract infection: Blood cultures urine cultures continue cefepime Acute metabolic encephalopathy Anemia Thrombocytosis Acute hyponatremia Acute hypokalemia COVID test negative flu test negative Time Spent 70 minutes Advanced care time 20 minutes Patient is full code Plan discussed with: Patient Date of Service: May 03, 2025 Billing Provider: ELIN CRUZ MD Common Visit Codes: [id number] CARE 30-74 MIN ELIN CRUZ MD May 03, 2025 15:14
[2025-05-03 18:06] VITALS: BP 109/74; PULSE 83; RESP 24; TEMP 98.5; O2SAT 98
--- NOTE | 2025-05-03 18:31 | DVHINCON2 ---
Date of service: May 03, [address] Arreguin Reason for Consultation Abdominal pain diarrhea possible sepsis History of Present Illness This 85-year-old male were came to the emergency room with altered mental status also has been confused disoriented. Patient is not able to give any good detailed history at this time but has got complaints of abdominal pain nausea had some loose bowel movements also he also had a high fever on arrival was tachycardic and tachypneic Past Medical History History of GERD hyperlipidemia Past Surgical History Unremarkable Family History: Hypertension G8 FATHER Family History Noncontributory Social History Denies smoking or drinking Allergies: Coded Allergies: NO KNOWN ALLERGIES (Unverified , 04/19/19) Home Meds Active Scripts Amoxicillin & Pot Clavulanate (Amoxicillin/Potassium Cla) 875 Mg Tab, 875 MG PO BID for 7 Days, #14 TAB Prov:RADHA TRAN DO 03/10/22 Prednisone (Prednisone) 20 Mg Tab, 20 MG PO BIDWM, #14 MG Prov:YURY DESIR MD 01/13/21 Celecoxib (CeleBREX CAPSULE) 100 Mg Cp, 1 CAP PO BID, #60 CAP Prov:YURY DESIR MD 01/13/21 Reported Medications Doxylamine Succinate (Doxylamine Succinate) Succinat Pow, 25 MG PO QHSP, POW 04/20/19 Acetaminophen (Tylenol) 325 Mg Cap, 500 MG PO DAILY, CAP 04/20/19 Alfuzosin Hydrochloride (ALFUZOSIN HCL ER) 10 Mg Tab, 1 TAB PO QHSP, #30 TAB 11 Refills 04/20/19 Pravastatin Sodium (PRAVACHOL TABLET) 20 Mg Tb, 40 MG PO QHSP, TAB 04/20/19 Aspirin (Asa) 81 Mg Ch, 81 MG PO DAILY, TAB.CHEW 04/20/19 Magnesium Oxide (Mg Supplement (MAGNESIUM) 400 Mg Cap, 400 MG PO DAILY, CAP 04/20/19 Multiple Minerals W/ Vitamins (Calcium Citrate Plus Magn) 1 Tab Tab, 1 TAB PO DAILY, TAB 04/20/19 Cholecalciferol (VITAMIN D3) 2,000 Unit Tab, 1000 UNIT OR DAILY, TAB 04/20/19 Etodolac (Etodolac) 400 Mg Tab, 400 MG PO QAM, TAB 04/20/19 Metoprolol Succinate (Metoprolol Succinate Er) 50 Mg Tab, 50 MG PO DAILY for 30 Days, MG 04/20/19 Amlodipine Besylate (Amlodipine Besylate) 5 Mg Tab, 10 MG PO DAILY for 30 Days, MG 04/20/19 Omeprazole (Gnp Omeprazole) 20 Mg Tab, 1 TAB PO DAILY, #90 TAB 1 Refill 04/20/19 Current Medications Current Medications Medications (Trade) Dose Ordered Sig/Avis Route PRN Reason Start Time Stop Time Status Last Admin Cefepime HCl 50 ml @ 12.5 mls/hr Q8H IV 05/03/25 08:00 05/03/25 16:34 Potassium Chloride 100 ml @ 50 mls/hr Q2H IV 05/03/25 00:45 05/03/25 04:44 DC 05/03/25 03:20 Aspirin 81 mg DAILY PO 05/03/25 10:00 05/03/25 10:32 Atorvastatin Calcium (Lipitor) 20 mg HS PO 05/03/25 22:00 Famotidine (Pepcid Injection) 20 mg DAILY IV 05/03/25 10:00 05/03/25 10:32 Vancomycin HCl 0 ml @ 0 mls/hr UD IV 05/03/25 02:30 Sodium Chloride 1,000 ml @ 60 mls/hr [id number] IV 05/03/25 02:30 05/03/25 03:35 Acetaminophen/ Hydrocodone Bitart ([place] 5/325MG Tab) 1 tab Q4HP PRN PO MODERATE PAIN (4-6 PAIN SCALE) 05/03/25 02:30 Ondansetron HCl (Zofran) 4 mg Q4HP PRN IV NAUSEA / VOMITING 05/03/25 02:30 05/03/25 04:54 Docusate Sodium (Colace Capsule) 100 mg BIDPRN PRN PO FOR CONSTIPATION 05/03/25 02:30 Acetaminophen (Tylenol Tablet) 500 mg Q6HP PRN PO PAIN SCALE 1-3 OR TEMP>100.4 05/03/25 02:30 05/03/25 06:23 Nitroglycerin (Ntrostat Sublingual) 0.4 mg Q5MINP PRN SL FOR CHEST PAIN 05/03/25 03:00 Morphine Sulfate 2 mg Q30M PRN IV FOR CHEST PAIN 05/03/25 03:00 Pantoprazole Sodium (Protonix) 40 mg DAILY IV 05/03/25 10:00 05/03/25 10:32 Review of Systems Noncontributory Vital Signs Vital Signs Date Time Temp Pulse Resp B/P (MAP) Pulse Ox O2 Delivery O2 Flow Rate FiO2 05/03/25 16:00 84 17 107/60 (76) 91 05/03/25 14:00 98.5 98.5 05/03/25 08:06 Room Air* 0 21 Physical Exam Moderately built and nourished male in no acute distress at this time but complaints of some epigastric pain HEENT examination reveals no pallor no icterus Patient is alert now and slightly drowsy occasionally Lungs are clear Cardiovascular unremarkable Abdomen is soft mild epigastric tenderness no rigidity no guarding Extremities no edema no varicosities no clubbing No neuro focal deficits Labs/Diagnostic Data Labs Test 05/03/25 06:03 05/03/25 01:22 05/02/25 23:00 05/02/25 22:40 Range/Units White Blood Count 35.0 #*H 4.4-10.8 10^3/uL Red Blood Count 3.64 L 4.5-5.90 10^6/uL Hemoglobin 9.8 L 13.5-17.5 g/dL Hematocrit 30.1 L 41.0-53.0 % Mean Corpuscular Volume 82.5 80.0-100.0 fL Mean Corpuscular Hemoglobin 26.8 L 28.0-32.0 pg Mean Corpuscular Hemoglobin Concent 32.5 32.0-36.0 g/dL Red Cell Distribution Width 14.9 H 11.8-14.3 % Platelet Count 543 H 140-450 10^3/uL Mean Platelet Volume 6.1 L 6.9-10.8 fL Neutrophils (%) (Auto) 37.0-80.0 % Lymphocytes (%) (Auto) 10.0-50.0 % Monocytes (%) (Auto) 0.0-12.0 % Basophils (%) (Auto) 0.0-2.0 % Neutrophils # (Auto) 1.6-8.6 10 ^3/uL Lymphocytes # (Auto) 0.4-5.4 10 ^3/uL Monocytes # (Auto) 0-1.3 10 ^3/uL Differential Total Cells Counted 100.0 100 Neutrophils % (Manual) 95 H 37.0-80.0 Band Neutrophils % (Manual) 1 Lymphocytes % (Manual) 3 L 10.0-50.0 Monocytes % (Manual) 1 0-12 Eosinophils % (Manual) 0 0-7 Basophils % (Manual) 0 0.0-2.0 Metamyelocytes % (manual) 0 Myelocytes % (Manual) 0 Promyelocytes % (Manual) 0 Blast Cells % (Manual) 0 Reactive Lymphocytes 0 Platelet Estimate Increased Sodium Level 135 L 136-145 mmol/L Potassium Level 3.2 L 3.5-5.1 mmol/L Chloride Level 99 98-107 mmol/L Carbon Dioxide Level 21 20-31 mmol/L Anion Gap 15 5-15 Blood Urea Nitrogen 9 9-23 mg/dL Creatinine 0.94 0.700-1.30 mg/dL Glomerular Filtration Rate Calc 79 >90 mL/min BUN/Creatinine Ratio 9.6 L 10.0-20.0 Serum Glucose 146 H 74-106 mg/dL Hemoglobin A1c 5.3 <5.7 % A1C Calcium Level 8.6 L 8.7-10.4 mg/dL Total Bilirubin 1.1 H 0.2-1.0 mg/dL Aspartate Amino Transferase (AST) 20 13-40 U/L Alanine Aminotransferase (ALT) 10 7-40 U/L Alkaline Phosphatase 63 46-116 U/L Total Protein 6.3 5.7-8.2 g/dL Albumin 3.3 3.2-4.8 g/dL Troponin I High Sensitivity 13 </=54 ng/L Urine Color Yellow Yellow Urine Clarity Turbid H Clear Urine pH 5.5 5.0-9.0 Urine Specific [place] 1.017 1.001-1.035 Urine Protein 1+ H Negative Urine Ketones Negative Negative Urine Blood 1+ H Negative /uL Urine Nitrite 2+ H Negative Urine Bilirubin Negative Negative Urine Urobilinogen Normal Negative mg/dL Urine Leukocyte Esterase 3+ Negative /uL Urine RBC 9 0 - 3 /hpf Urine WBC Clumps Present None Seen /hpf Urine Microscopic WBC 228 H 0-3 /HPF Urine Squamous Epithelial Cells Few <5 /hpf Urine Bacteria Mod H None Seen /hpf Urine Glucose Normal Normal mg/dL Eosinophils (%) (Auto) 0.0 0.0-7.0 % Eosinophils # (Auto) 0 0-0.8 10 ^3/uL Basophils # (Auto) 0 0-0.2 10 ^3/uL Nucleated Red Blood Cells 0.0 % Prothrombin Time 12.0 H 9.3-11.8 sec Prothrombin Time INR 1.15 0.9-1.15 Activated Partial Thromboplast Time 31.9 24.5-34.5 SEC Lactic Acid Level 2.0 0.4-2.0 mmol/L Test 05/02/25 00:23 Range/Units Influenza Type A Antigen Negative Negative Influenza Type B Antigen Negative Negative SARS-CoV-2 Antigen (Rapid) Negative NEGATIVE Assessment 85-year-old with complaints of abdominal pain fever diarrhea and brought in with altered mental status Had temperature of 102.7 in the ER white count was very high Complaints of diarrhea Clinical impression Sepsis of undetermined etiology Possible GERD or ulcer disease to be ruled out Chronic diarrhea possible C diff or other pathology also to be ruled out Plan/Recommendation IV antibiotics Follow blood test including CBC and liver panel and amylase and lipase Stool for O&P C&S and C diff If symptoms persist may need further evaluation as necessary including infectious disease consult etc. Thank you Dr. Theodore Elam discussed with: Patient DORIAN MCKOY MD May 03, 2025 18:31
[2025-05-03 20:00] VITALS: PULSE 82; PULSE 83; RESP 20; O2SAT 95
[2025-05-03 21:00] VITALS: BP 113/62; PULSE 87; RESP 22; TEMP 98; O2SAT 95
[2025-05-03] MEDS: ATORVASTATIN 20 MG TAB PO SCH (21:45)
[2025-05-04] VITALS (8 sets, daily range): BP systolic 100–137; BP diastolic 60–86; PULSE 70–94; RESP 16–20; TEMP 97.2–98.8; O2SAT 94–97
[2025-05-04 06:01] LABS: Hemoglobin 8.5 g/dL (13.5-17.5)
[2025-05-04 06:03] LABS: Hematocrit 25.8 % (41.0-53.0); Mean Corpuscular Hemoglobin 26.5 pg (28.0-32.0); Mean Corpuscular Volume 80.5 fL (80.0-100.0)
[2025-05-04 06:07] LABS: Alkaline Phosphatase 66 U/L (46-116); Anion Gap 11 (5-15); BUN/Creatinine Ratio 19.6 (10.0-20.0); Blood Urea Nitrogen 20 mg/dL (9-23); Carbon Dioxide 27 mmol/L (20-31); Chloride 100 mmol/L (98-107); Sodium 138 mmol/L (136-145); Total Protein 5.9 g/dL (5.7-8.2)
[2025-05-04 06:08] LABS: Bilirubin, Total 0.3 mg/dL (0.2-1.0)
[2025-05-04 06:14] LABS: Alanine Aminotransferase 9 U/L (7-40); Albumin 3.0 g/dL (3.2-4.8); Calcium 8.3 mg/dL (8.7-10.4); Glucose 107 mg/dL (74-106); Potassium 3.0 mmol/L (3.5-5.1)
[2025-05-04 07:00] LABS: Total Cells Counted 100.0 (100)
--- NOTE | 2025-05-04 11:59 | DVHPN2 ---
Reviewed: Care Plan, H&P, Labs, Medications, Previous Orders, Radiology Changes from previous H/P or p: No Changes Eyes: No Pain, No Vision change, No Conjunctivae inflammation, No Eyelid inflammation, No Other, No Redness ENT: No Ear pain, No Ear discharge, No Nose pain, No Nose discharge, No Nose congestion, No Mouth pain, No Mouth swelling, No Throat pain, No Throat swelling, No Other Cardiovascular: No Chest Pain, No Palpitations, No Orthopnea, No Paroxysmal Noc. Dyspnea, No Edema, No Lt Headedness, No Other Respiratory: No Cough, No Dry, No Shortness of breath, No SOB with excertion, No Wheezing, No Hemoptysis, No Pleuritic Pain, No Sputum, No Other Gastrointestinal: No Nausea, No Vomiting, No Abdominal Pain, No Diarrhea, No Constipation, No Melena, No Hematochezia, No Other Genitourinary: No Dysuria, No Frequency, No Incontinence, No Hematuria, No Retention, No Other Musculoskeletal: No other, No neck pain, No shoulder pain, No arm pain, No back pain, No hand pain, No leg pain, No foot pain Skin: No Rash, No Lesions, No Jaundice, No Bruising, No Other Objective Vitals Vital Signs Date Time Temp Pulse Resp B/P (MAP) Pulse Ox O2 Delivery O2 Flow Rate FiO2 05/04/25 09:00 98.2 70 16 106/65 (79) 96 98.2 05/04/25 08:00 Room Air* 0 21 Intake/Output Intake and Output 05/04/25 07:00 Intake Total 1502.500 ml Output Total 1125 ml Balance 377.500 ml Intake Oral 240 ml IV Total 1262.500 ml Output Urine Total 1125 ml # Bowel Movements 4 Medications Current Medications Medications Dose Ordered Sig/Avis Route Start Time Stop Time Status Last Admin Dose Admin Cefepime HCl 50 ml @ 12.5 mls/hr Q8H IV 05/03/25 08:00 05/04/25 09:20 12.5 MLS/HR Aspirin 81 mg DAILY PO 05/03/25 10:00 05/04/25 09:14 81 MG Atorvastatin Calcium 20 mg HS PO 05/03/25 22:00 05/03/25 21:45 20 MG Famotidine 20 mg DAILY IV 05/03/25 10:00 05/04/25 09:15 20 MG Vancomycin HCl 0 ml @ 0 mls/hr UD IV 05/03/25 02:30 Sodium Chloride 1,000 ml @ 60 mls/hr [id number] IV 05/03/25 02:30 05/03/25 19:20 60 MLS/HR Acetaminophen/ Hydrocodone Bitart 1 tab Q4HP PRN PO 05/03/25 02:30 Ondansetron HCl 4 mg Q4HP PRN IV 05/03/25 02:30 05/03/25 04:54 4 MG Docusate Sodium 100 mg BIDPRN PRN PO 05/03/25 02:30 Acetaminophen 500 mg Q6HP PRN PO 05/03/25 02:30 05/03/25 06:23 500 MG Nitroglycerin 0.4 mg Q5MINP PRN SL 05/03/25 03:00 Morphine Sulfate 2 mg Q30M PRN IV 05/03/25 03:00 Pantoprazole Sodium 40 mg DAILY IV 05/03/25 10:00 05/04/25 09:15 40 MG Laboratory Results Laboratory Tests 05/04/25 05:10 Chemistry Test 05/04/25 05:10 Albumin 3.0 g/dL (3.2-4.8) L Calcium Level 8.3 mg/dL (8.7-10.4) L Total Protein 5.9 g/dL (5.7-8.2) LFT Test 05/04/25 05:10 Alanine Aminotransferase (ALT) 9 U/L (7-40) Alkaline Phosphatase 66 U/L (46-116) Aspartate Amino Transferase (AST) 13 U/L (13-40) Total Bilirubin 0.3 mg/dL (0.2-1.0) Urinalysis Test 05/02/25 23:00 Urine Color Yellow (Yellow) Urine Clarity Turbid (Clear) H Urine pH 5.5 (5.0-9.0) Urine Specific [place] 1.017 (1.001-1.035) Urine Protein 1+ (Negative) H Urine Ketones Negative (Negative) Urine Blood 1+ /uL (Negative) H Urine Nitrite 2+ (Negative) H Urine Bilirubin Negative (Negative) Urine Urobilinogen Normal mg/dL (Negative) Urine Leukocyte Esterase 3+ /uL (Negative) Urine RBC 9 /hpf (0 - 3) Urine WBC Clumps Present /hpf (None Seen) Urine Microscopic WBC 228 /HPF (0-3) H Urine Squamous Epithelial Cells Few /hpf (<5) Urine Bacteria Mod /hpf (None Seen) H Urine Glucose Normal mg/dL (Normal) Microbiology Microbiology Date/Time Source Procedure Growth Status 05/02/25 22:45 Blood Blood Culture - Preliminary NO GROWTH AFTER 24 HOURS OF INCUBATION. Resulted Labs and/or images reviewed: Labs reviewed by me, Image(s) reviewed by me Assessment/Plan Assessment/Plan Septic shock with elevated white count of 25 K hypotension and altered mental status secondary to pneumonia versus urinary tract infection Left lower lobe pneumonia: Cefepime vancomycin Acute urinary tract infection: Blood cultures negative, urine cultures pending, continue cefepime Acute metabolic encephalopathy Anemia Thrombocytosis Acute hyponatremia Acute hypokalemia History of prostate cancer 14 years ago status post chemotherapy proton beam therapy Recurrence of prostate cancer being treated by oncologist at [place] since December 2024 Status post bilateral nephrostomy tube placement December 2024 COVID test negative flu test negative Time Spent 70 minutes Advanced care time 20 minutes Patient is full code Princess at bed side Plan discussed with: Patient My Orders Orders - ELIN CRUZ MD Procedure Category Date Status Time Mrsa Screen MICHELLE 05/03/25 In Process 20:35 * Dietary Consult CONS 05/03/25 Transmitted 21:55 Hepatitis B Surface LAB 05/03/25 In Process Antigen 22:00 Hepatitis C Antibody LAB 05/03/25 In Process 22:00 Notify Provider NOTICE 05/04/25 Transmitted Malnutrition 09:12 Nutritional NOURISH 05/04/25 Transmitted Supplements 09:12 Dietary NOTICE 05/04/25 Transmitted Recommendations 09:12 Urine Bacterial MICHELLE 05/04/25 Transmitted Culture 11:46 Date of Service: May 04, 2025 Billing Provider: ELIN CRUZ MD Common Visit Codes: [id number] CARE 30-74 MIN ELIN CRUZ MD May 04, 2025 11:59
[2025-05-04] MEDS: VANCOMYCIN 1GM/250ML KIT 250 ML IV SCH (16:21)
[2025-05-04] MEDS: CEFEPIME 1GM/50ML 50 ML IV SCH (17:00)
[2025-05-04] MEDS: FAMOTIDINE (10MG/ML) 2ML VL IV SCH (21:03)
[2025-05-04] MEDS: TAMSULOSIN HYDROCHLORIDE 0.4 MG CAP PO SCH (21:03)
[2025-05-05] VITALS (8 sets, daily range): BP systolic 120–142; BP diastolic 65–83; PULSE 78–88; RESP 17–18; TEMP 98–98.3; O2SAT 94–97
[2025-05-05 08:05] LABS: Hemoglobin 9.0 g/dL (13.5-17.5); Nucleated Red Blood Cells % 0.0 %
[2025-05-05 08:08] LABS: Hematocrit 27.9 % (41.0-53.0); Mean Corpuscular Hemoglobin 26.2 pg (28.0-32.0); Mean Corpuscular Volume 81.5 fL (80.0-100.0)
--- NOTE | 2025-05-05 08:57 | MEDREC ---
[facility] Intervention Section I [facility] Intervention: Review courses of therapy (C.DIFF TOXIN DETECTED PLEASE CONSIDER ADDING VANCOMYCIN 125 MG PO QID ) LILIA FERNANDES PHARMACIST May 05, 2025 08:57
--- NOTE | 2025-05-05 10:06 | DVHPN2 ---
Reviewed: Care Plan, H&P, Labs, Medications, Previous Orders, Radiology Changes from previous H/P or p: No Changes Eyes: No Pain, No Vision change, No Conjunctivae inflammation, No Eyelid inflammation, No Other, No Redness ENT: No Ear pain, No Ear discharge, No Nose pain, No Nose discharge, No Nose congestion, No Mouth pain, No Mouth swelling, No Throat pain, No Throat swelling, No Other Cardiovascular: No Chest Pain, No Palpitations, No Orthopnea, No Paroxysmal Noc. Dyspnea, No Edema, No Lt Headedness, No Other Respiratory: No Cough, No Dry, No Shortness of breath, No SOB with excertion, No Wheezing, No Hemoptysis, No Pleuritic Pain, No Sputum, No Other Gastrointestinal: No Nausea, No Vomiting, No Abdominal Pain, No Diarrhea, No Constipation, No Melena, No Hematochezia, No Other Genitourinary: No Dysuria, No Frequency, No Incontinence, No Hematuria, No Retention, No Other Musculoskeletal: No other, No neck pain, No shoulder pain, No arm pain, No back pain, No hand pain, No leg pain, No foot pain Skin: No Rash, No Lesions, No Jaundice, No Bruising, No Other Objective Vitals Vital Signs Date Time Temp Pulse Resp B/P (MAP) Pulse Ox O2 Delivery O2 Flow Rate FiO2 05/05/25 09:00 80 18 123/65 (84) 96 05/05/25 08:08 Room Air* 0 21 05/05/25 05:00 98.3 98.3 Intake/Output Intake and Output 05/05/25 07:00 Intake Total 1230 ml Output Total 975 ml Balance 255 ml Intake Oral 560 ml IV Total 670 ml Output Urine Total 975 ml # Bowel Movements 3 Medications Current Medications Medications Dose Ordered Sig/Avis Route Start Time Stop Time Status Last Admin Dose Admin Aspirin 81 mg DAILY PO 05/03/25 10:00 05/05/25 09:32 81 MG Atorvastatin Calcium 20 mg HS PO 05/03/25 22:00 05/04/25 21:03 20 MG Vancomycin HCl 0 ml @ 0 mls/hr UD IV 05/03/25 02:30 Sodium Chloride 1,000 ml @ 60 mls/hr [id number] IV 05/03/25 02:30 05/05/25 04:33 60 MLS/HR Acetaminophen/ Hydrocodone Bitart 1 tab Q4HP PRN PO 05/03/25 02:30 Ondansetron HCl 4 mg Q4HP PRN IV 05/03/25 02:30 05/03/25 04:54 4 MG Docusate Sodium 100 mg BIDPRN PRN PO 05/03/25 02:30 Acetaminophen 500 mg Q6HP PRN PO 05/03/25 02:30 05/03/25 06:23 500 MG Nitroglycerin 0.4 mg Q5MINP PRN SL 05/03/25 03:00 Morphine Sulfate 2 mg Q30M PRN IV 05/03/25 03:00 Pantoprazole Sodium 40 mg DAILY IV 05/03/25 10:00 05/05/25 09:33 40 MG Pregabalin 75 mg DAILY PO 05/05/25 20:00 Tamsulosin HCl 0.4 mg QPM PO 05/04/25 20:00 05/04/25 21:03 0.4 MG Vancomycin HCl 250 ml @ 250 mls/hr DAILY@1600 IV 05/04/25 16:00 05/04/25 16:21 250 MLS/HR Cefepime HCl 50 ml @ 12.5 mls/hr Q8H IV 05/04/25 17:00 05/05/25 08:28 12.5 MLS/HR Famotidine 20 mg BID IV 05/04/25 20:00 05/05/25 09:34 20 MG Laboratory Results Laboratory Tests 05/04/25 05:10 05/05/25 07:19 Urinalysis Test 05/02/25 23:00 Urine Color Yellow (Yellow) Urine Clarity Turbid (Clear) H Urine pH 5.5 (5.0-9.0) Urine Specific [place] 1.017 (1.001-1.035) Urine Protein 1+ (Negative) H Urine Ketones Negative (Negative) Urine Blood 1+ /uL (Negative) H Urine Nitrite 2+ (Negative) H Urine Bilirubin Negative (Negative) Urine Urobilinogen Normal mg/dL (Negative) Urine Leukocyte Esterase 3+ /uL (Negative) Urine RBC 9 /hpf (0 - 3) Urine WBC Clumps Present /hpf (None Seen) Urine Microscopic WBC 228 /HPF (0-3) H Urine Squamous Epithelial Cells Few /hpf (<5) Urine Bacteria Mod /hpf (None Seen) H Urine Glucose Normal mg/dL (Normal) Microbiology Microbiology Date/Time Source Procedure Growth Status 05/03/25 20:35 Nose MRSA Screen - Final Complete 05/03/25 20:30 Stool Clostridium difficile Toxin Assay - Final Complete 05/02/25 22:45 Blood Blood Culture - Preliminary NO GROWTH AFTER 48 HOURS OF INCUBATION. Resulted Assessment/Plan Assessment/Plan Septic shock with elevated white count of 25 K hypotension and altered mental status secondary to pneumonia versus urinary tract infection Left lower lobe pneumonia: Cefepime DC vancomycin Acute urinary tract infection: Blood cultures negative, urine cultures pending, continue cefepime C diff colitis vancomycin 125 mg p.o. Q ID, Flagyl 500 mg p.o. q.8 hours Acute metabolic encephalopathy Anemia Thrombocytosis Acute hyponatremia Acute hypokalemia History of prostate cancer 14 years ago status post chemotherapy proton beam therapy Recurrence of prostate cancer being treated by oncologist at [facility] since December 2024 Status post bilateral nephrostomy tube placement December 2024 COVID test negative flu test negative History of colovesical fistula Time Spent 70 minutes Advanced care time 20 minutes Patient is full code Princess at bed side Plan discussed with: Patient My Orders Orders - ELIN CRUZ MD Procedure Category Date Status Time Urine Bacterial MICHELLE 05/04/25 In Process Culture 11:46 Communication Order ORDERS 05/04/25 Transmitted 12:04 Pregabalin Capsule PHA 05/05/25 In Process (Lyrica Capsule) 20:00 Tamsulosin PHA 05/04/25 In Process Hydrochloride (Flomax) 20:00 Bipap/Cpap For Sleep RT 05/04/25 Logged Apnea 12:48 Vancomycin Po PHA 05/05/25 Verified 12:00 Metronidazole Ivpb PHA 05/05/25 Verified Flagyl 14:00 Date of Service: May 05, 2025 Billing Provider: ELIN CRUZ MD Common Visit Codes: [id number] CARE 30-74 MIN ELIN CRUZ MD May 05, 2025 10:06
[2025-05-05] MEDS: VANCOMYCIN HCL 125 MG CAP PO SCH (11:35)
[2025-05-05] MEDS: HYDROcodone-ACET 5/325MG TAB PO PRN (13:21)
[2025-05-05] MEDS: POTASSIUM CHL 20 Meq TABLET PO ONE (13:37)
[2025-05-05] MEDS ORDERED: PREGABALIN CAPSULE 75 MG CAP PO SCH (20:00)
[2025-05-05] MEDS: PREGABALIN CAPSULE 75 MG CAP PO SCH (20:43)
[2025-05-06] VITALS (8 sets, daily range): BP systolic 105–148; BP diastolic 81–98; PULSE 55–87; RESP 14–20; TEMP 97.5–99.4; O2SAT 94–96
--- NOTE | 2025-05-06 10:14 | DVHPN2 ---
Reviewed: Care Plan, H&P, Labs, Medications, Previous Orders, Radiology Changes from previous H/P or p: No Changes Eyes: No Pain, No Vision change, No Conjunctivae inflammation, No Eyelid inflammation, No Other, No Redness ENT: No Ear pain, No Ear discharge, No Nose pain, No Nose discharge, No Nose congestion, No Mouth pain, No Mouth swelling, No Throat pain, No Throat swelling, No Other Cardiovascular: No Chest Pain, No Palpitations, No Orthopnea, No Paroxysmal Noc. Dyspnea, No Edema, No Lt Headedness, No Other Respiratory: No Cough, No Dry, No Shortness of breath, No SOB with excertion, No Wheezing, No Hemoptysis, No Pleuritic Pain, No Sputum, No Other Gastrointestinal: No Nausea, No Vomiting, No Abdominal Pain, No Diarrhea, No Constipation, No Melena, No Hematochezia, No Other Genitourinary: No Dysuria, No Frequency, No Incontinence, No Hematuria, No Retention, No Other Musculoskeletal: No other, No neck pain, No shoulder pain, No arm pain, No back pain, No hand pain, No leg pain, No foot pain Skin: No Rash, No Lesions, No Jaundice, No Bruising, No Other Objective Vitals Vital Signs Date Time Temp Pulse Resp B/P (MAP) Pulse Ox O2 Delivery O2 Flow Rate FiO2 05/06/25 08:00 20 Room Air* 0 21 05/06/25 05:00 98.1 57 105/84 (91) 96 98.1 Intake/Output Intake and Output 05/06/25 07:00 Intake Total 2962.5 ml Output Total 1002 ml Balance 1960.5 ml Intake Oral 2280 ml IV Total 682.5 ml Output Urine Total 350 ml Stool Total 2 ml Drainage Total 650 ml Medications Current Medications Medications Dose Ordered Sig/Avis Route Start Time Stop Time Status Last Admin Dose Admin Aspirin 81 mg DAILY PO 05/03/25 10:00 05/06/25 09:00 81 MG Atorvastatin Calcium 20 mg HS PO 05/03/25 22:00 05/05/25 21:29 20 MG Sodium Chloride 1,000 ml @ 60 mls/hr [id number] IV 05/03/25 02:30 05/05/25 20:44 60 MLS/HR Acetaminophen/ Hydrocodone Bitart 1 tab Q4HP PRN PO 05/03/25 02:30 05/06/25 00:01 1 TAB Ondansetron HCl 4 mg Q4HP PRN IV 05/03/25 02:30 05/03/25 04:54 4 MG Docusate Sodium 100 mg BIDPRN PRN PO 05/03/25 02:30 Acetaminophen 500 mg Q6HP PRN PO 05/03/25 02:30 05/03/25 06:23 500 MG Nitroglycerin 0.4 mg Q5MINP PRN SL 05/03/25 03:00 Morphine Sulfate 2 mg Q30M PRN IV 05/03/25 03:00 Tamsulosin HCl 0.4 mg QPM PO 05/04/25 20:00 05/05/25 17:00 0.4 MG Cefepime HCl 50 ml @ 12.5 mls/hr Q8H IV 05/04/25 17:00 05/06/25 09:00 12.5 MLS/HR Famotidine 20 mg BID IV 05/04/25 20:00 05/06/25 09:00 20 MG Vancomycin HCl 125 mg QID PO 05/05/25 12:00 05/06/25 05:03 125 MG Metronidazole 100 ml @ 100 mls/hr Q8HR IV 05/05/25 14:00 05/06/25 05:03 100 MLS/HR Pregabalin 75 mg DAILY@2000 PO 05/05/25 20:00 05/05/25 20:43 75 MG Laboratory Results Laboratory Tests 05/04/25 05:10 05/05/25 07:19 Urinalysis Test 05/02/25 23:00 Urine Color Yellow (Yellow) Urine Clarity Turbid (Clear) H Urine pH 5.5 (5.0-9.0) Urine Specific [place] 1.017 (1.001-1.035) Urine Protein 1+ (Negative) H Urine Ketones Negative (Negative) Urine Blood 1+ /uL (Negative) H Urine Nitrite 2+ (Negative) H Urine Bilirubin Negative (Negative) Urine Urobilinogen Normal mg/dL (Negative) Urine Leukocyte Esterase 3+ /uL (Negative) Urine RBC 9 /hpf (0 - 3) Urine WBC Clumps Present /hpf (None Seen) Urine Microscopic WBC 228 /HPF (0-3) H Urine Squamous Epithelial Cells Few /hpf (<5) Urine Bacteria Mod /hpf (None Seen) H Urine Glucose Normal mg/dL (Normal) Microbiology Microbiology Date/Time Source Procedure Growth Status 05/04/25 13:15 Voided Urine Urine Culture - Preliminary Resulted 05/03/25 20:35 Nose MRSA Screen - Final Complete 05/03/25 20:30 Stool Clostridium difficile Toxin Assay - Final Complete 05/02/25 22:45 Blood Blood Culture - Preliminary NO GROWTH AFTER 72 HOURS OF INCUBATION. Resulted Labs and/or images reviewed: Labs reviewed by me, Image(s) reviewed by me Assessment/Plan Assessment/Plan Septic shock with elevated white count of 25 K hypotension and altered mental status secondary to pneumonia versus urinary tract infection Left lower lobe pneumonia: Cefepime Acute urinary tract infection: Blood cultures negative, urine cultures negative continue cefepime C diff colitis vancomycin 125 mg p.o. Q ID, Flagyl 500 mg p.o. q.8 hours Acute metabolic encephalopathy Anemia Thrombocytosis Acute hyponatremia Acute hypokalemia History of prostate cancer 14 years ago status post chemotherapy proton beam therapy Recurrence of prostate cancer being treated by oncologist at [facility] since December 2024 Status post bilateral nephrostomy tube placement December 2024 COVID test negative flu test negative History of colovesical fistula Time Spent 50 minutes Advanced care time 20 minutes Patient is full code Princess at bed side Midline ordered Plan discussed with: Patient My Orders Orders - ELIN CRUZ MD Procedure Category Date Status Time Vancomycin Po PHA 05/05/25 In Process 12:00 Metronidazole PHA 05/05/25 In Process 500mg/100ml (Flagyl 14:00 Pregabalin Capsule PHA 05/05/25 In Process (Lyrica Capsule) 20:00 Date of Service: May 06, 2025 Billing Provider: ELIN CRUZ MD Common Visit Codes: [id number] INP/OBS CARE(HIGH) ELIN CRUZ MD May 06, 2025 10:14
[2025-05-06] MEDS ORDERED: BUPRENORPHINE 15 MCG/HR TD SCH (10:15)
[2025-05-06 11:11] LABS: Hepatitis B Surface Antigen Negative (Negative)
[2025-05-06 11:26] LABS: Hepatitis C Antibody Negative (Negative)
[2025-05-07] VITALS (7 sets, daily range): BP systolic 129–148; BP diastolic 73–102; PULSE 59–101; RESP 16–18; TEMP 97.7–98.3; O2SAT 95–98
--- NOTE | 2025-05-07 09:27 | DVHPN2 ---
Reviewed: Care Plan, H&P, Labs, Medications, Previous Orders, Radiology Changes from previous H/P or p: No Changes Eyes: No Pain, No Vision change, No Conjunctivae inflammation, No Eyelid inflammation, No Other, No Redness ENT: No Ear pain, No Ear discharge, No Nose pain, No Nose discharge, No Nose congestion, No Mouth pain, No Mouth swelling, No Throat pain, No Throat swelling, No Other Cardiovascular: No Chest Pain, No Palpitations, No Orthopnea, No Paroxysmal Noc. Dyspnea, No Edema, No Lt Headedness, No Other Respiratory: No Cough, No Dry, No Shortness of breath, No SOB with excertion, No Wheezing, No Hemoptysis, No Pleuritic Pain, No Sputum, No Other Gastrointestinal: No Nausea, No Vomiting, No Abdominal Pain, No Diarrhea, No Constipation, No Melena, No Hematochezia, No Other Genitourinary: No Dysuria, No Frequency, No Incontinence, No Hematuria, No Retention, No Other Musculoskeletal: No other, No neck pain, No shoulder pain, No arm pain, No back pain, No hand pain, No leg pain, No foot pain Skin: No Rash, No Lesions, No Jaundice, No Bruising, No Other Objective Vitals Vital Signs Date Time Temp Pulse Resp B/P (MAP) Pulse Ox O2 Delivery O2 Flow Rate FiO2 05/07/25 08:54 98.3 93 16 129/102 (111) 98 98.3 05/07/25 07:47 Room Air* 0 21 Intake/Output Intake and Output 05/07/25 07:00 Intake Total 950 ml Output Total 900 ml Balance 50 ml Intake Oral 550 ml IV Total 400 ml Output Urine Total 900 ml # Bowel Movements 5 Medications Current Medications Medications Dose Ordered Sig/Avis Route Start Time Stop Time Status Last Admin Dose Admin Aspirin 81 mg DAILY PO 05/03/25 10:00 05/06/25 09:00 81 MG Atorvastatin Calcium 20 mg HS PO 05/03/25 22:00 05/06/25 21:31 20 MG Sodium Chloride 1,000 ml @ 60 mls/hr [id number] IV 05/03/25 02:30 05/07/25 05:15 60 MLS/HR Acetaminophen/ Hydrocodone Bitart 1 tab Q4HP PRN PO 05/03/25 02:30 05/06/25 00:01 1 TAB Ondansetron HCl 4 mg Q4HP PRN IV 05/03/25 02:30 05/03/25 04:54 4 MG Docusate Sodium 100 mg BIDPRN PRN PO 05/03/25 02:30 Acetaminophen 500 mg Q6HP PRN PO 05/03/25 02:30 05/03/25 06:23 500 MG Nitroglycerin 0.4 mg Q5MINP PRN SL 05/03/25 03:00 Morphine Sulfate 2 mg Q30M PRN IV 05/03/25 03:00 Tamsulosin HCl 0.4 mg QPM PO 05/04/25 20:00 05/06/25 17:49 0.4 MG Cefepime HCl 50 ml @ 12.5 mls/hr Q8H IV 05/04/25 17:00 05/07/25 00:43 12.5 MLS/HR Famotidine 20 mg BID IV 05/04/25 20:00 05/06/25 21:32 20 MG Vancomycin HCl 125 mg QID PO 05/05/25 12:00 05/07/25 05:15 125 MG Metronidazole 100 ml @ 100 mls/hr Q8HR IV 05/05/25 14:00 05/07/25 05:15 100 MLS/HR Pregabalin 75 mg DAILY@2000 PO 05/05/25 20:00 05/06/25 21:29 75 MG Patient Own Medication 15 QWEEKLY TD 05/06/25 10:15 Laboratory Results Laboratory Tests 05/04/25 05:10 05/05/25 07:19 Urinalysis Test 05/02/25 23:00 Urine Color Yellow (Yellow) Urine Clarity Turbid (Clear) H Urine pH 5.5 (5.0-9.0) Urine Specific [place] 1.017 (1.001-1.035) Urine Protein 1+ (Negative) H Urine Ketones Negative (Negative) Urine Blood 1+ /uL (Negative) H Urine Nitrite 2+ (Negative) H Urine Bilirubin Negative (Negative) Urine Urobilinogen Normal mg/dL (Negative) Urine Leukocyte Esterase 3+ /uL (Negative) Urine RBC 9 /hpf (0 - 3) Urine WBC Clumps Present /hpf (None Seen) Urine Microscopic WBC 228 /HPF (0-3) H Urine Squamous Epithelial Cells Few /hpf (<5) Urine Bacteria Mod /hpf (None Seen) H Urine Glucose Normal mg/dL (Normal) Microbiology Microbiology Date/Time Source Procedure Growth Status 05/04/25 13:15 Voided Urine Urine Culture - Final Complete 05/03/25 20:35 Nose MRSA Screen - Final Complete 05/03/25 20:30 Stool Clostridium difficile Toxin Assay - Final Complete 05/02/25 22:45 Blood Blood Culture - Preliminary NO GROWTH AFTER 72 HOURS OF INCUBATION. Resulted Labs and/or images reviewed: Labs reviewed by me, Image(s) reviewed by me Assessment/Plan Assessment/Plan Septic shock with elevated white count of 25 K hypotension and altered mental status secondary to pneumonia versus urinary tract infection Left lower lobe pneumonia: Cefepime Acute urinary tract infection: Blood cultures negative, urine cultures negative continue cefepime C diff colitis vancomycin 125 mg p.o. Q ID, Flagyl 500 mg p.o. q.8 hours Acute metabolic encephalopathy Anemia Thrombocytosis Acute hyponatremia Acute hypokalemia History of prostate cancer 14 years ago status post chemotherapy proton beam therapy Recurrence of prostate cancer being treated by oncologist at [facility] since December 2024 Status post bilateral nephrostomy tube placement December 2024 COVID test negative flu test negative History of colovesical fistula Time Spent 50 minutes Advanced care time 20 minutes Patient is full code Princess at bed side Midline ordered Continue current management Plan discussed with: Patient My Orders Orders - ELIN CRUZ MD Procedure Category Date Status Time Insert Midline ORDERS 05/06/25 Transmitted 10:13 Patients Own PHA 05/06/25 In Process Medication 10:15 Date of Service: May 07, 2025 Billing Provider: ELIN CRUZ MD Common Visit Codes: [id number] CARE 30-74 MIN ELIN CRUZ MD May 07, 2025 09:27
--- NOTE | 2025-05-07 17:11 | DVHPN2 ---
Progress Note - Dictate Date Seen: May 07, 2025 Medical Necessity Reason Pt with a Central, PICC or Fol: No Subjective No new complaints, patient resting comfortably His diarrhea is improving and stools are more formed vital signs Vital Sign Date Time Temp Pulse Resp B/P (MAP) Pulse Ox O2 Delivery O2 Flow Rate FiO2 05/07/25 13:00 97.7 82 18 130/84 (99) 97 97.7 05/07/25 07:47 Room Air* 0 21 Total Intake and Output 05/06/25 05/06/25 05/07/25 15:00 23:00 07:00 Intake Total 50 ml 500 ml 400 ml Output Total 900 ml Balance 50 ml -400 ml 400 ml medications Current Medications Medications Dose Ordered Sig/Avis Route Start Time Stop Time Status Last Admin Dose Admin Aspirin 81 mg DAILY PO 05/03/25 10:00 05/07/25 09:52 81 MG Atorvastatin Calcium 20 mg HS PO 05/03/25 22:00 05/06/25 21:31 20 MG Sodium Chloride 1,000 ml @ 60 mls/hr [id number] IV 05/03/25 02:30 05/07/25 05:15 60 MLS/HR Acetaminophen/ Hydrocodone Bitart 1 tab Q4HP PRN PO 05/03/25 02:30 05/06/25 00:01 1 TAB Ondansetron HCl 4 mg Q4HP PRN IV 05/03/25 02:30 05/03/25 04:54 4 MG Docusate Sodium 100 mg BIDPRN PRN PO 05/03/25 02:30 Acetaminophen 500 mg Q6HP PRN PO 05/03/25 02:30 05/03/25 06:23 500 MG Nitroglycerin 0.4 mg Q5MINP PRN SL 05/03/25 03:00 Morphine Sulfate 2 mg Q30M PRN IV 05/03/25 03:00 Tamsulosin HCl 0.4 mg QPM PO 05/04/25 20:00 05/07/25 16:52 0.4 MG Cefepime HCl 50 ml @ 12.5 mls/hr Q8H IV 05/04/25 17:00 05/07/25 16:53 12.5 MLS/HR Famotidine 20 mg BID IV 05/04/25 20:00 05/07/25 09:52 20 MG Vancomycin HCl 125 mg QID PO 05/05/25 12:00 05/07/25 16:52 125 MG Metronidazole 100 ml @ 100 mls/hr Q8HR IV 05/05/25 14:00 05/07/25 13:57 100 MLS/HR Pregabalin 75 mg DAILY@2000 PO 05/05/25 20:00 05/06/25 21:29 75 MG Patient Own Medication 15 QWEEKLY TD 05/06/25 10:15 objective Moderately built and nourished male in no acute distress at this time but complaints of some epigastric pain HEENT examination reveals no pallor no icterus Patient is alert now and slightly drowsy occasionally Lungs are clear Cardiovascular unremarkable Abdomen is soft mild epigastric tenderness no rigidity no guarding Extremities no edema no varicosities no clubbing No neuro focal deficits laboratory and microbiology Laboratory Tests 05/05/25 07:19 05/04/25 05:10 Test 05/04/25 05:10 Range/Units Serum Glucose 107 H 74-106 mg/dL Problems(with codes): (1) Sepsis, unspecified organism (2) Pneumonia, unspecified organism (3) Anemia, unspecified (4) Generalized weakness (5) C. difficile diarrhea Prognosis Plan Continue vancomycin 125 mg p.o. q.6 hours Patient had a midline placed There is plan to discharge to SNF for IV antibiotics Add Florastor probiotics Dietary Evaluation Review Recommendations by RD: Protein Supplementation Comments: 1) Initiate Ensure High Protein qd 2) Initiate MVI @ 1 tb qd 3) Consider antidiarrheals as needed 4) Follow-up with cardiology and gastroenterology 5) Continue to monitor I&O, labs, and skin integrity Expected Outcomes/Goals: 1) appetite and labs to improve 2) GI symptoms to resolve 3) f/u in 3-5 days Plan discussed with: Patient, Spouse, Other (Nurse) BETSY NICHOLS MD May 07, 2025 17:11
[2025-05-08 00:55] VITALS: BP 121/73; PULSE 96; RESP 18; TEMP 98.4; O2SAT 97
[2025-05-08 05:00] VITALS: BP 156/84; PULSE 65; RESP 18; TEMP 98.4; O2SAT 95
[2025-05-08 07:01] LABS: Hematocrit 30.8 % (41.0-53.0); Hemoglobin 9.9 g/dL (13.5-17.5); Mean Corpuscular Hemoglobin 26.0 pg (28.0-32.0); Mean Corpuscular Volume 80.9 fL (80.0-100.0); Nucleated Red Blood Cells % 0.0 %
[2025-05-08 07:18] LABS: Alanine Aminotransferase 12 U/L (7-40); Albumin 3.2 g/dL (3.2-4.8); Alkaline Phosphatase 73 U/L (46-116); Anion Gap 11 (5-15); BUN/Creatinine Ratio 17.4 (10.0-20.0); Blood Urea Nitrogen 15 mg/dL (9-23); Carbon Dioxide 26 mmol/L (20-31); Chloride 101 mmol/L (98-107); Sodium 138 mmol/L (136-145); Total Protein 6.5 g/dL (5.7-8.2)
[2025-05-08 07:19] LABS: Bilirubin, Total 0.3 mg/dL (0.2-1.0)
[2025-05-08 07:20] LABS: Calcium 8.7 mg/dL (8.7-10.4); Glucose 113 mg/dL (74-106); Potassium 3.0 mmol/L (3.5-5.1)
[2025-05-08 07:50] VITALS: PULSE 94; RESP 14; O2SAT 92
[2025-05-08 09:20] VITALS: BP 152/87; PULSE 94; RESP 14; TEMP 97.7; O2SAT 92
--- NOTE | 2025-05-08 09:34 | DVHPN2 ---
Reviewed: Care Plan, H&P, Labs, Medications, Previous Orders, Radiology Changes from previous H/P or p: No Changes Eyes: No Pain, No Vision change, No Conjunctivae inflammation, No Eyelid inflammation, No Other, No Redness ENT: No Ear pain, No Ear discharge, No Nose pain, No Nose discharge, No Nose congestion, No Mouth pain, No Mouth swelling, No Throat pain, No Throat swelling, No Other Cardiovascular: No Chest Pain, No Palpitations, No Orthopnea, No Paroxysmal Noc. Dyspnea, No Edema, No Lt Headedness, No Other Respiratory: No Cough, No Dry, No Shortness of breath, No SOB with excertion, No Wheezing, No Hemoptysis, No Pleuritic Pain, No Sputum, No Other Gastrointestinal: No Nausea, No Vomiting, No Abdominal Pain, No Diarrhea, No Constipation, No Melena, No Hematochezia, No Other Genitourinary: No Dysuria, No Frequency, No Incontinence, No Hematuria, No Retention, No Other Musculoskeletal: No other, No neck pain, No shoulder pain, No arm pain, No back pain, No hand pain, No leg pain, No foot pain Skin: No Rash, No Lesions, No Jaundice, No Bruising, No Other Objective Vitals Vital Signs Date Time Temp Pulse Resp B/P (MAP) Pulse Ox O2 Delivery O2 Flow Rate FiO2 05/08/25 09:20 97.7 94 14 152/87 (108) 92 97.7 05/07/25 20:00 Room Air* 0 21 Intake/Output Intake and Output 05/08/25 07:00 Intake Total 1875 ml Output Total 1150 ml Balance 725 ml Intake Oral 850 ml IV Total 1025 ml Output Urine Total 1150 ml # Bowel Movements 4 Medications Current Medications Medications Dose Ordered Sig/Avis Route Start Time Stop Time Status Last Admin Dose Admin Aspirin 81 mg DAILY PO 05/03/25 10:00 05/08/25 08:45 81 MG Atorvastatin Calcium 20 mg HS PO 05/03/25 22:00 05/07/25 21:13 20 MG Sodium Chloride 1,000 ml @ 60 mls/hr [id number] IV 05/03/25 02:30 05/08/25 00:59 60 MLS/HR Acetaminophen/ Hydrocodone Bitart 1 tab Q4HP PRN PO 05/03/25 02:30 05/06/25 00:01 1 TAB Ondansetron HCl 4 mg Q4HP PRN IV 05/03/25 02:30 05/03/25 04:54 4 MG Docusate Sodium 100 mg BIDPRN PRN PO 05/03/25 02:30 Acetaminophen 500 mg Q6HP PRN PO 05/03/25 02:30 05/03/25 06:23 500 MG Nitroglycerin 0.4 mg Q5MINP PRN SL 05/03/25 03:00 Morphine Sulfate 2 mg Q30M PRN IV 05/03/25 03:00 Tamsulosin HCl 0.4 mg QPM PO 05/04/25 20:00 05/07/25 16:52 0.4 MG Cefepime HCl 50 ml @ 12.5 mls/hr Q8H IV 05/04/25 17:00 05/08/25 08:46 12.5 MLS/HR Famotidine 20 mg BID IV 05/04/25 20:00 05/08/25 08:45 20 MG Vancomycin HCl 125 mg QID PO 05/05/25 12:00 05/08/25 05:05 125 MG Metronidazole 100 ml @ 100 mls/hr Q8HR IV 05/05/25 14:00 05/08/25 05:04 100 MLS/HR Pregabalin 75 mg DAILY@2000 PO 05/05/25 20:00 05/07/25 21:13 75 MG Patient Own Medication 15 QWEEKLY TD 05/06/25 10:15 Laboratory Results Laboratory Tests 05/08/25 06:18 Chemistry Test 05/08/25 06:18 Albumin 3.2 g/dL (3.2-4.8) Calcium Level 8.7 mg/dL (8.7-10.4) Total Protein 6.5 g/dL (5.7-8.2) LFT Test 05/08/25 06:18 Alanine Aminotransferase (ALT) 12 U/L (7-40) Alkaline Phosphatase 73 U/L (46-116) Aspartate Amino Transferase (AST) 15 U/L (13-40) Total Bilirubin 0.3 mg/dL (0.2-1.0) Urinalysis Test 05/02/25 23:00 Urine Color Yellow (Yellow) Urine Clarity Turbid (Clear) H Urine pH 5.5 (5.0-9.0) Urine Specific [place] 1.017 (1.001-1.035) Urine Protein 1+ (Negative) H Urine Ketones Negative (Negative) Urine Blood 1+ /uL (Negative) H Urine Nitrite 2+ (Negative) H Urine Bilirubin Negative (Negative) Urine Urobilinogen Normal mg/dL (Negative) Urine Leukocyte Esterase 3+ /uL (Negative) Urine RBC 9 /hpf (0 - 3) Urine WBC Clumps Present /hpf (None Seen) Urine Microscopic WBC 228 /HPF (0-3) H Urine Squamous Epithelial Cells Few /hpf (<5) Urine Bacteria Mod /hpf (None Seen) H Urine Glucose Normal mg/dL (Normal) Microbiology Microbiology Date/Time Source Procedure Growth Status 05/04/25 13:15 Voided Urine Urine Culture - Final Complete 05/03/25 20:35 Nose MRSA Screen - Final Complete 05/03/25 20:30 Stool Clostridium difficile Toxin Assay - Final Complete 05/02/25 22:45 Blood Blood Culture - Final NO GROWTH AFTER 5 DAYS OF INCUBATION. Complete Labs and/or images reviewed: Labs reviewed by me, Image(s) reviewed by me Assessment/Plan Assessment/Plan Septic shock with elevated white count of 25 K hypotension and altered mental status secondary to pneumonia versus urinary tract infection Left lower lobe pneumonia: Cefepime Acute urinary tract infection: Blood cultures negative, urine cultures negative continue cefepime C diff colitis vancomycin 125 mg p.o. Q ID, Flagyl 500 mg p.o. q.8 hours Florastor, GI consult by Dr. Mirna Hollingsworth appreciated Acute metabolic encephalopathy Anemia Thrombocytosis Acute hyponatremia Acute hypokalemia History of prostate cancer 14 years ago status post chemotherapy proton beam therapy Recurrence of prostate cancer being treated by oncologist at [place] since December 2024 Status post bilateral nephrostomy tube placement December 2024 COVID test negative flu test negative History of colovesical fistula Time Spent 55 minutes Advanced care time 20 minutes Patient is full code Princess at bed side Midline ordered Continue current management Plan discussed with: Patient My Orders Orders - ELIN CRUZ MD Procedure Category Date Status Time Complete Blood Count LAB 05/09/25 Verified 04:00 Complete Blood Count LAB 05/10/25 Verified 04:00 Comprehensive LAB 05/09/25 Verified Metabolic Panel 04:00 Comprehensive LAB 05/10/25 Verified Metabolic Panel 04:00 Potassium Er Tablet PHA 05/08/25 Logged (Klor-Con Tablet) 08:45 Florastor (S. PHA 05/08/25 Logged Boulardii) (Florastor) 10:00 Date of Service: May 08, 2025 Billing Provider: ELIN CRUZ MD Common Visit Codes: [id number] CARE 30-74 MIN ELIN CRUZ MD May 08, 2025 09:34
[2025-05-08] MEDS: POTASSIUM CHL 20 Meq TABLET PO ONE (09:57)
[2025-05-08] MEDS: FLORASTOR (S. BOULARDII) 250 MG CAP PO SCH (09:58)
[2025-05-08 12:33] VITALS: BP 98/74; PULSE 59; RESP 18; TEMP 97.8; O2SAT 97
--- NOTE | 2025-05-08 14:46 | DVHTS ---
Transfer Summary Transfer Summary Date of Admission May 03, 2025 at 02:48 Date of Transfer: May 08, 2025 Transfer Diagnosis septic shock Brief Hx & Hospital Course: Septic shock with elevated white count of 25 K hypotension and altered mental status secondary to pneumonia versus urinary tract infection Left lower lobe pneumonia: Cefepime Acute urinary tract infection: Blood cultures negative, urine cultures negative continue cefepime C diff colitis vancomycin 125 mg p.o. Q ID, Flagyl 500 mg p.o. q.8 hours Florastor, GI consult by Dr. Mirna Hollingsworth appreciated Acute metabolic encephalopathy Anemia Thrombocytosis Acute hyponatremia Acute hypokalemia History of prostate cancer 14 years ago status post chemotherapy proton beam therapy Recurrence of prostate cancer being treated by oncologist at [facility] since December 2024 Status post bilateral nephrostomy tube placement December 2024 COVID test negative flu test negative History of colovesical fistula Transfer to: [facility] Scheduled Acetaminophen (Tylenol), 500 MG PO DAILY, (Reported) Alfuzosin Hydrochloride (Alfuzosin Hcl Er), 1 TAB PO QHSP, (Reported) Amlodipine Besylate (Amlodipine Besylate), 10 MG PO DAILY, (Reported) Amoxicillin & Pot Clavulanate (Amoxicillin/Potassium Cla), 875 MG PO BID Aspirin (Asa), 81 MG PO DAILY, (Reported) Celecoxib (CeleBREX CAPSULE), 1 CAP PO BID Cholecalciferol (Vitamin D3), 1,000 UNIT OR DAILY, (Reported) Doxylamine Succinate (Doxylamine Succinate), 25 MG PO QHSP, (Reported) Etodolac (Etodolac), 400 MG PO QAM, (Reported) Magnesium Oxide (Mg Supplement (Magnesium), 400 MG PO DAILY, (Reported) Metoprolol Succinate (Metoprolol Succinate Er), 50 MG PO DAILY, (Reported) Multiple Minerals W/ Vitamins (Calcium Citrate Plus Magn), 1 TAB PO DAILY, (Reported) Omeprazole (Gnp Omeprazole), 1 TAB PO DAILY, (Reported) Pravastatin Sodium (Pravachol Tablet), 40 MG PO QHSP, (Reported) Prednisone (Prednisone), 20 MG PO BIDWM Date of Service: May 08, 2025 Billing Provider: ELIN CRUZ MD Common Visit Codes: 04502-ARF/OBS DISCH DAY >30min ELIN CRUZ MD May 08, 2025 14:45
--- NOTE | 2025-05-08 14:56 | DVHPN2 ---
Progress Note - Dictate Date Seen: May 08, 2025 Medical Necessity Reason Pt with a Central, PICC or Fol: No Subjective No new complaints, patient resting comfortably His diarrhea is improving and stools are more formed 4 bowel movements recorded vital signs Vital Sign Date Time Temp Pulse Resp B/P (MAP) Pulse Ox O2 Delivery O2 Flow Rate FiO2 05/08/25 12:33 97.8 59 18 98/74 (82) 97 97.8 05/08/25 07:50 Room Air* 0 21 Total Intake and Output 05/07/25 05/07/25 05/08/25 15:00 23:00 07:00 Intake Total 1325 ml 550 ml Output Total 950 ml 200 ml Balance 375 ml 350 ml medications Current Medications Medications Dose Ordered Sig/Avis Route Start Time Stop Time Status Last Admin Dose Admin Aspirin 81 mg DAILY PO 05/03/25 10:00 05/08/25 08:45 81 MG Atorvastatin Calcium 20 mg HS PO 05/03/25 22:00 05/07/25 21:13 20 MG Sodium Chloride 1,000 ml @ 60 mls/hr [id number] IV 05/03/25 02:30 05/08/25 00:59 60 MLS/HR Acetaminophen/ Hydrocodone Bitart 1 tab Q4HP PRN PO 05/03/25 02:30 05/06/25 00:01 1 TAB Ondansetron HCl 4 mg Q4HP PRN IV 05/03/25 02:30 05/03/25 04:54 4 MG Docusate Sodium 100 mg BIDPRN PRN PO 05/03/25 02:30 Acetaminophen 500 mg Q6HP PRN PO 05/03/25 02:30 05/03/25 06:23 500 MG Nitroglycerin 0.4 mg Q5MINP PRN SL 05/03/25 03:00 Morphine Sulfate 2 mg Q30M PRN IV 05/03/25 03:00 Tamsulosin HCl 0.4 mg QPM PO 05/04/25 20:00 05/07/25 16:52 0.4 MG Cefepime HCl 50 ml @ 12.5 mls/hr Q8H IV 05/04/25 17:00 05/08/25 08:46 12.5 MLS/HR Famotidine 20 mg BID IV 05/04/25 20:00 05/08/25 08:45 20 MG Vancomycin HCl 125 mg QID PO 05/05/25 12:00 05/08/25 11:58 125 MG Metronidazole 100 ml @ 100 mls/hr Q8HR IV 05/05/25 14:00 05/08/25 13:46 100 MLS/HR Pregabalin 75 mg DAILY@2000 PO 05/05/25 20:00 05/07/25 21:13 75 MG Patient Own Medication 15 QWEEKLY TD 05/06/25 10:15 Saccharomyces Boulardii 250 mg BID PO 05/08/25 10:00 05/08/25 09:58 250 MG objective Moderately built and nourished male in no acute distress at this time but complaints of some epigastric pain HEENT examination reveals no pallor no icterus Patient is alert now and slightly drowsy occasionally Lungs are clear Cardiovascular unremarkable Abdomen is soft mild epigastric tenderness no rigidity no guarding Extremities no edema no varicosities no clubbing No neuro focal deficits laboratory and microbiology Laboratory Tests 05/08/25 06:18 Test 05/08/25 06:18 Range/Units Serum Glucose 113 H 74-106 mg/dL Problems(with codes): (1) C. difficile diarrhea (2) Sepsis, unspecified organism (3) Pneumonia, unspecified organism (4) Anemia, unspecified Prognosis Plan Continue oral vancomycin Continue probiotics Discharge planning is in progress to [facility] Dietary Evaluation Review Recommendations by RD: Protein Supplementation Comments: 1) Initiate Ensure High Protein qd 2) Initiate MVI @ 1 tb qd 3) Consider antidiarrheals as needed 4) Follow-up with cardiology and gastroenterology 5) Continue to monitor I&O, labs, and skin integrity Expected Outcomes/Goals: 1) appetite and labs to improve 2) GI symptoms to resolve 3) f/u in 3-5 days Plan discussed with: Patient, Spouse BETSY NICHOLS MD May 08, 2025 14:56
[2025-05-08 16:58] VITALS: BP 116/78; PULSE 86; RESP 18; TEMP 97.8; O2SAT 98
== END 2025-05-08 19:00 | disposition short-term general hospital (02) | DRG 871 ==
LOC: ER 22:26 → EDBD 22:26 → OVERFLOW 05-03 02:48 → TELE-EAST 05-03 18:14 → TELE-CENTR 05-04 22:40
PROVIDERS: ADMIT Family Medicine; ATTEND Family Medicine
DX: A41.59 Other Gram-negative sepsis (principal); G93.41 Metabolic encephalopathy; R65.21 Severe sepsis with septic shock; J15.69 Pneumonia due to other Gram-negative bacteria; J15.9 Unspecified bacterial pneumonia; E87.1 Hypo-osmolality and hyponatremia; N39.0 Urinary tract infection, site not specified; A04.72 Enterocolitis due to Clostridium difficile, not specified as recurrent; A41.9 Sepsis, unspecified organism; D75.839 Thrombocytosis, unspecified; Z20.822 Contact with and (suspected) exposure to COVID-19; E87.6 Hypokalemia; E78.5 Hyperlipidemia, unspecified; D64.9 Anemia, unspecified; I10 Essential (primary) hypertension; R73.9 Hyperglycemia, unspecified; K21.9 Gastro-esophageal reflux disease without esophagitis; Z79.2 Long term (current) use of antibiotics; Z79.899 Other long term (current) drug therapy; Z82.49 Family history of ischemic heart disease and other diseases of the circulatory system; Z85.46 Personal history of malignant neoplasm of prostate; Z92.21 Personal history of antineoplastic chemotherapy
CPT/HCPCS: 36415; 71045; 80053; 80202; 81001; 82565; 83036; 83605; 84484; 85007; 85025; 85027; 85610; 85730; 86803; 86850; 86900; 86901; 87040; 87081; 87086; 87340; 87426; 87493; 87804; 93005; 99291; G0378; J2405; J2470; J3480; J3490